=== PATIENT | female | born 1945 | race Caucasian/White ===

== ENCOUNTER → 2018-02-06 | Outpatient (CLI) | payer MEDICARE ==
[~2018-02-06] MED LIST: ASPI1TAB88 PO; CITA20TA6 PO; DICY20TA3 PO; IOHEXOL 180 MG/ML 10 ML VIAL. ONE; LIDOCAINE 2% PF 2ML VIAL. ONE; LISI-338 PO; OXYB5TAB7 PO; OXYC5TAB95 PO; ZOLP10TA4 PO; methylPREDNISolone ACETATE 40 MG/ML VIAL. ONE; methylPREDNISolone ACETATE 80 MG/ML VIAL. ONE
--- NOTE | 2018-02-07 06:17 | PAIN ---
DATE OF SERVICE: 02/06/2018 INITIAL CONSULTATION FOR PAIN CLINIC CHIEF COMPLAINT: Low back and right lower extremity pain. HISTORY OF PRESENT ILLNESS: This is a 72-year-old female who presents with history of pain about 1 year, increasing pain in the low back, radiating into the right lower extremity, posterior lateral thigh, lateral anterior thigh, medial thigh with some pain into the medial right knee as well as the lower leg on the right side. The patient reports it is burning with weakness in the right leg when she is walking, worse with standing, change positions, but essentially with walking and standing more than 10-15 minutes. The patient reports the pain has been there for many years before this, but has been worse over the past 1 year. The patient reports it is constant, throbbing, becoming more burning quality, radiating, shooting, again worse in the evening or after she had been on her feet for a while. The patient reports it is awakening her from sleep at night at least once or twice, does not affect her bowel or bladder control, but does affect her ability to walk fairly significantly and she does have a walker at home, but she is not having with her today. The patient reports she has had physical therapy in the past, nothing recently. No other treatments, counseling, exercise, chiropractic treatment or other treatments, not taking any medication for the pain except for Back and Body Kush Aspirin. This patient did have MRI scan of the lumbar spine showing old burst fracture with vertebroplasty, disk degeneration and annular bulges present at L3-L4 and L4-L5 levels with mild bilateral L4-L5 foraminal narrowing, left greater than right. The patient rates her disability rate from 0-10, 10 being the worst, is a 7 with family and home responsibilities, recreation, social activity as well as self-care and 8 with life support activities. PAST MEDICAL HISTORY: Significant for hypertension; cigarette smoking, still smokes about 1 pack a day for the past 50+ years; history of arthritis; dizziness. PREVIOUS SURGERY: Include right rotator cuff repair in 2017. Previous hysterectomy, skin cancer removals, and cataract extraction. CURRENT MEDICATIONS: Include Kush Aspirin Back and Body formula [id number], zolpidem, dicyclomine, citalopram, lisinopril, and oxybutynin. ALLERGIES: The patient has no known drug allergies. FAMILY HISTORY: Significant for no major medical problems or conditions she is aware of. SOCIAL HISTORY: The patient drinks alcohol about twice a month, smokes 1 pack of cigarettes a day and has for the past 40-50 years. She is , lives with her spouse, is currently retired, has no children, living at home, lives locally in [place], [place]. REVIEW OF SYSTEMS: The patient's review of systems is positive for those items mentioned in history of present illness. All systems reviewed and otherwise negative. It is complete, full and well documented on the patient's chart. PHYSICAL EXAMINATION: VITAL SIGNS: The patient's blood pressure 162/85, pulse 79, respirations 18, temperature 97.8 degrees Fahrenheit, height is 5 feet inches, weight is 140 pounds. GENERAL: The patient is awake, alert, oriented, appropriate, very pleasant demeanor. HEENT: Shows normocephalic, atraumatic. Extraocular movements are intact and symmetrical. Oral cavity: Mucous membranes moist and pink. Dentition is intact. NECK: Shows anterior throat supple without palpable lymphadenopathy noted. Neck shows full rotational motion of cervical spine, both laterally as well as extension and flexion without difficulty. CHEST: Shows normal on inspection. Breath sounds are clear to auscultation bilaterally. HEART: Shows S1, S2 clear. No murmurs auscultated. ABDOMEN: Soft, nontender, nondistended. No palpable organomegaly. No rebound or guarding demonstrated. BACK: Shows spine grossly in the midline, slight exaggeration of thoracic kyphosis and minor flattening of lumbar lordotic curvature. Lumbar paraspinous muscle shows symmetrical on inspection. On palpation shows some mild tenderness, but only diffusely in the lumbar distribution without radiation with palpation. The patient shows no tenderness over the sacrum or sacroiliac regions. The patient has good rotational motion both laterally greater than 10 degrees right and left as well as extension greater than 10 degrees, forward flexion 45 degrees of the lumbar spine without difficulty or pain reported. LOWER EXTREMITIES: Show deep tendon reflexes 2+ in the patellar, 1+ tendo calcaneus tendons. Motor exam is strong with 5/5 dorsiflexion, extension, quadriceps and hamstring flexion and symmetrical. Peripheral pulses are 1+ in the posterior tibial and dorsalis pedis pulses bilaterally. No peripheral edema is noted. Straight leg raising has been negative for reproduction of radicular symptoms bilaterally. Gaenslen's and Brandon's maneuvers are negative bilaterally as well. The patient is able to stand, stand on her toes without difficulty or loss of balance, is walking with a slight shuffling gait, does appear to favor the right lower extremity mildly, but again not using assistive device to ambulate. SKIN: Shows warm and dry, good turgor. No edema. No sores, rashes or bruising. IMPRESSION: This is a 72-year-old female with: 1. Approximate 1 year history of increasing pain, low back, right lower extremity in a radicular fashion. 2. MRI scan of lumbar spine as noted. 3. Arthritis. 4. Cigarette smoking. 5. Hypertension. PLAN: Options were discussed with the patient including conservative medical management, physical therapy, interventional techniques and she would like to pursue interventional techniques. We discussed a lumbar epidural steroid injection using description as well as anatomical models to describe the procedure. Risks were then discussed including, but not limited to bleeding, infection, possibility of epidural hematoma, subsequent neurological compromise, dural puncture, headaches, spinal cord and/or nerve damage, side effects of steroid medication and poor results regarding pain control. The patient understands and wished to proceed. The patient will return to the clinic in approximately 2 weeks for followup, was counseled on return appointment, activity level and side effects to be aware of. DIAGNOSIS: Lumbar radiculopathy with lumbar degenerative disk disease. PROCEDURES: Lumbar epidural steroid injection, translaminar approach, L4-L5 level using C-arm fluoroscopic guidance under sterile prep and drape using local anesthetic. MEDICATION INJECTED: A total of 120 mg Depo-Medrol plus 10 mL of preservative-free normal saline and 2 mL of Isovue for contrast. CONDITION AT DISCHARGE: Stable. The patient tolerated the procedure well and had no complications. NED PAULINO MD DR: GÓMEZ/maria d JOB#: [id number] / [id number]
== END | disposition home or self-care (01) ==
LOC: PNCL 10:28
PROVIDERS: ATTEND Anesthesiology
DX: M51.16 Intervertebral disc disorders with radiculopathy, lumbar region (principal); I10 Essential (primary) hypertension; M19.90 Unspecified osteoarthritis, unspecified site; F17.210 Nicotine dependence, cigarettes, uncomplicated; Z98.890 Other specified postprocedural states; Z90.710 Acquired absence of both cervix and uterus; Z98.49 Cataract extraction status, unspecified eye; Z79.82 Long term (current) use of aspirin; Z79.899 Other long term (current) drug therapy; Z72.89 Other problems related to lifestyle
CPT/HCPCS: 62323; J1030; J1040; J2001; Q9965

== ENCOUNTER → 2018-02-21 | Outpatient (CLI) | payer MEDICARE ==
--- NOTE | 2018-02-21 11:17 | PAIN ---
DATE OF SERVICE: 02/21/2018 DIAGNOSIS: Lumbar radiculopathy with lumbar degenerative disk disease. HISTORY OF PRESENT ILLNESS: The patient is a 72-year-old female who returns for followup status post lumbar epidural steroid injection x 1. The patient reports about 90% improvement in her low back, still pain radiating to the right posterior gluteus, posterior lateral thigh, anterior thigh and into the hip. The patient reports it is 8 on a scale of 10 at its worst, 7 on average, 6 at its least and is 7 today. The patient reports it is aching and shooting, becoming more constant and noticeable, but much better after the last injection. Her back is doing much better. She has increased her activity, greater distance walking, able to do household activities and recreational activities and is very pleased with this. The patient reports it is worse in the morning, but then has some aches later in the day. The patient reports it is not keeping her from sleep at night. She is doing well, sleeping better with sitting or lying down; again worse with walking, standing and increased activity. The patient reports no new motor or sensory deficits, no new bowel or bladder incontinence or other complaints. PHYSICAL EXAMINATION: VITAL SIGNS: The patient's blood pressure is 160/81, pulse is 75, respirations 18, temperature is 98.2 degrees Fahrenheit, height is 5 feet 5 inches, weight is 140 pounds. GENERAL: The patient is awake, alert, oriented, appropriate, very pleasant demeanor. HEENT: Head shows normocephalic, atraumatic. Extraocular movements are intact and symmetrical. Oral cavity shows mucous membranes moist and pink. Dentition is intact. NECK: Shows anterior throat supple without palpable lymphadenopathy noted. Swallow reflex is symmetrical. CHEST: Shows normal with inspection. Breath sounds clear to auscultation bilaterally. HEART: Shows S1, S2 clear. No murmurs auscultated. ABDOMEN: Soft, nontender, nondistended. No palpable organomegaly. No rebound or guarding demonstrated. BACK: Shows spine grossly in the midline. Normal appearing thoracic kyphosis and minor flattening of lumbar lordotic curvature. Lumbar paraspinous muscle shows symmetrical on inspection. With palpation, it shows some [id number]-[id number] tenderness only diffusely in the lumbar distribution without radiation in the low lumbar distribution. No tenderness over the sacrum or sacroiliac regions. The patient has good rotational motion of lumbar spine, both laterally as well as extension and flexion without difficulty. EXTREMITIES: The patient's lower extremities show deep tendon reflexes at 2+ in the patellar and 1+ tendo calcaneus tendons. Motor exam is strong with 5/5 dorsiflexion and extension; quadriceps and hamstring flexion equal. Peripheral pulses are 1+ posterior tibia. No peripheral edema is noted bilaterally. Options were discussed with the patient. The patient's old chart was reviewed as was current medication regimen updated and current review of systems updated today as well. We will proceed with a second in the series of lumbar epidural steroid injection today with fluoroscopic guidance. Risks were again discussed including, but not limited to bleeding, infection, possibility of epidural hematoma, subsequent neurological compromise, dural puncture, headaches, spinal cord and/or nerve damage, side effects of steroid medication and poor results regarding pain control. The patient understands and wished to proceed. The patient will return to clinic in approximately 2 weeks for followup, was counseled as to return appointment, activity level and side effects to be aware of. DIAGNOSIS: Lumbar radiculopathy with lumbar degenerative disk disease. PROCEDURE: Lumbar epidural steroid injection, translaminar approach at the L4-L5 level using C-arm fluoroscopic guidance under sterile prep and drape using local anesthetic. MEDICATION INJECTED: A total of 120 mg Depo-Medrol plus 10 mL of preservative-free normal saline and 2 mL of Isovue for contrast. CONDITION AT DISCHARGE: Stable. The patient tolerated the procedure well, had no complications. NED PAULINO MD DR: GÓMEZ/maria d JOB#: [id number] / [id number]
== END | disposition home or self-care (01) ==
LOC: PNCL 09:40
PROVIDERS: ATTEND Anesthesiology
DX: M51.16 Intervertebral disc disorders with radiculopathy, lumbar region (principal)
CPT/HCPCS: 62323; J1030; J1040; J2001; Q9965

== ENCOUNTER → 2018-07-24 | Outpatient (CLI) | payer MEDICARE ==
[~2018-07-24] MED LIST changes: -LIDOCAINE 2% PF 2ML VIAL. ONE; +OXYC5TAB4 PO; -OXYC5TAB95 PO
--- NOTE | 2018-07-24 17:16 | PAIN ---
DATE OF SERVICE: 07/24/2018 PROGRESS NOTE FOR PAIN CLINIC DIAGNOSES: Lumbar radiculopathy with lumbar degenerative disk disease. HISTORY OF PRESENT ILLNESS: The patient is a 73-year-old female return for followup status post lumbar epidural steroid injection x 2, last seen 02/21/2018. The patient reports doing very well, 100% improvement until about the last 1-2 months. The patient reports pain began to return in 06/2018. Initially, she was walking with greater ease and comfort, traveling with ease, doing household activities, especially walking without pain, enjoying herself. The patient reports she is sleeping well at night, does not awaken her from sleep. The patient reports no new motor or sensory deficits or other complaints. She has pain in the low back into the right lower extremity, mostly in the posterior lateral thigh, lateral anterior thigh, medial thigh, medial lower leg with standing and walking for more than about 15-20 minutes. The patient reports the pain is a 9 on a scale 10 at its worst, 8 on average, 6 at least and is 6 today. The patient reports shooting, becoming more constant, more noticeable especially with traveling or sitting for prolonged periods as well as standing. She reports no other changes. PHYSICAL EXAMINATION: VITAL SIGNS: The patient blood pressure is 157/81, pulse 77, respirations 18, temperature is 98.4 degrees Fahrenheit, weight is 143 pounds. GENERAL: The patient is awake, alert, oriented, appropriate, very pleasant demeanor. HEENT: Head shows normocephalic and atraumatic. Extraocular movements are intact and symmetrical. Oral cavity: Mucous membranes are moist and pink. Dentition is intact. NECK: Shows anterior throat supple without palpable lymphadenopathy noted. Swallow reflex is symmetrical. CHEST: Shows normal on inspection. Breath sounds clear to auscultation bilaterally. HEART: Shows S1 and S2 clear. No murmurs auscultated. ABDOMEN: Soft, nontender and nondistended. No palpable organomegaly is noted. No rebound or guarding demonstrated. BACK: She has been the midline. Normal appearing thoracic kyphosis and lumbar lordotic curvature. Lumbar paraspinous muscle shows symmetrical on inspection, with palpation shows some moderate tenderness only in the low lumbar distribution bilaterally, but only diffusely without radiation, without trigger points. The patient shows good rotational motion of the lumbar spine, both laterally greater than 10 degrees right and left as well as extension than 10 degrees, forward flexion 45 degrees without significant pain reported. EXTREMITIES: The patient's lower extremities showed deep tendon reflexes at 2+ in the patellar and 1+ tendo calcaneus tendons. Motor exam is strong with 5/5 dorsiflexion, extension, quadriceps and hamstring flexion and symmetrical. Peripheral pulses are 1+ posterior tibial. No peripheral edema is noted bilaterally. PLAN: Options were discussed with the patient. The patient's old chart was reviewed as her current medication regimen updated. Current review of systems is updated today as well. We will proceed with a lumbar epidural steroid injection today as a ____ in the series with fluoroscopic guidance. Risks were again discussed including, but not limited to bleeding, infection, possibility of epidural hematoma, subsequent neurological compromise, dural puncture, headaches, spinal cord and/or nerve damage, side effects of steroid medication and poor results regarding pain control. The patient understands and wished to proceed. The patient to return to clinic in approximately 2 weeks for followup, was counseled on return appointment, activity level and side effects to be aware of. DIAGNOSES: Lumbar radiculopathy with lumbar degenerative disk disease. PROCEDURE: Lumbar epidural steroid injection, translaminar approach at L4-L5 level using C-arm fluoroscopic guidance under sterile prep and drape using local anesthetic. MEDICATION INJECTED: A total of 120 mg Depo-Medrol, plus 10 mL preservative-free normal saline and 2 mL of Isovue for contrast. CONDITION AT DISCHARGE: Stable. The patient tolerated procedure well, had no complications. NED PAULINO MD DR: GÓMEZ/maria d JOB#: [id number] / [id number]
== END | disposition home or self-care (01) ==
LOC: PNCL 10:14
PROVIDERS: ATTEND Anesthesiology
DX: M51.16 Intervertebral disc disorders with radiculopathy, lumbar region (principal)
CPT/HCPCS: 62323; J1030; J1040; Q9965

== ENCOUNTER → 2019-01-03 | Outpatient (CLI) | payer MEDICARE ==
--- NOTE | 2019-01-03 20:52 | PAIN ---
DATE OF SERVICE: 01/03/2019 PROGRESS NOTE FOR PAIN CLINIC DIAGNOSIS: Lumbar radiculopathy with lumbar degenerative disk disease. HISTORY OF PRESENT ILLNESS: The patient is a 73-year-old female, who returns for followup status post lumbar epidural steroid injections, last seen in 07/24/2018. The patient did very well with about 50% improvement for the first 3 months. The patient reports the pain is returning now in the low back and right lower extremity, posterior hip, posterolateral thigh, lateral anterior thigh and medial thigh and lower leg. The patient reports it is 8 on a scale of 10 at its worst, 8 on an average, 7 at its least and is a 7 today. The patient reports no new motor or sensory deficits, no new bowel or bladder incontinence. Initially, she was increasing distance walking, doing better with household activities, sleeping well at night; reports it does awaken her from sleep occasionally over the last few weeks; otherwise, has been doing very well. The patient reports no new motor or sensory deficits, no new bowel or bladder incontinence. Reports the pain is aching, shooting and stabbing in quality and becoming more constant with time. PHYSICAL EXAMINATION: VITAL SIGNS: Today, the patient's blood pressure is 148/83, pulse 88, respirations 16, temperature 98.3 degrees Fahrenheit, weight is 141 pounds. GENERAL: The patient is awake, alert, oriented, appropriate, very pleasant demeanor. HEENT: Head shows normocephalic, atraumatic. Extraocular movements are intact and symmetrical. Oral cavity: Mucous membranes moist and pink; dentition is intact. NECK: Shows anterior throat supple without palpable lymphadenopathy noted. Swallow reflex symmetrical. CHEST: Shows normal on inspection. Breath sounds are clear to auscultation bilaterally. HEART: Shows S1, S2 clear. No murmurs auscultated. ABDOMEN: Soft, nontender and nondistended. No palpable organomegaly is noted. No rebound or guarding demonstrated. BACK: Shows spine grossly in the midline. Normal-appearing thoracic kyphosis and lumbar lordotic curvature. Lumbar paraspinous musculature shows symmetrical on inspection with palpation; there is some moderate tenderness diffusely bilaterally going diffusely without radiation. EXTREMITIES: The patient's lower extremities show deep tendon reflexes are +2 in the patellar and 1+ in the tendo-calcaneus tendons. Motor exam is strong with 5/5 dorsiflexion, extension and equal. Peripheral pulses are 1+ posterior tibial. No peripheral edema is noted. Options were discussed with the patient. The patient's old chart was reviewed as her current medication regimen updated. Current review of systems updated today as well. We will proceed with a lumbar epidural steroid injection, the first in this series, with fluoroscopic guidance. Risks were again discussed including, but not limited to bleeding, infection, possibility of epidural hematoma, subsequent neurologic compromise, dural puncture, headaches, spinal cord and/or nerve damage, side effects of steroid medication and poor results regarding pain control. The patient understands and wished to proceed. The patient will return to the clinic in approximately 2 weeks for followup. She was counseled on return appointment, activity level and side effects to be aware of. DIAGNOSIS: Lumbar radiculopathy with lumbar degenerative disk disease. PROCEDURE: Lumbar epidural steroid injection, translaminar approach at L4-L5 level, using C-arm fluoroscopic guidance under sterile prep and drape using local anesthetic. MEDICATIONS INJECTED: A total of 120 mg of Depo-Medrol plus 10 mL of preservative-free normal saline and 2 mL of Isovue for contrast. CONDITION AT DISCHARGE: Stable. The patient tolerated the procedure well, had no complications. NED PAULINO MD DR: GÓMEZ/nts JOB#: [id number] / [id number]
== END ==
LOC: PNCL 09:25
PROVIDERS: ATTEND Anesthesiology
DX: M51.16 Intervertebral disc disorders with radiculopathy, lumbar region (principal)
CPT/HCPCS: 62323; J1030; J1040; Q9965

== ENCOUNTER → 2019-01-17 | Outpatient (CLI) | payer MEDICARE ==
[~2019-01-17] MED LIST changes: -IOHEXOL 180 MG/ML 10 ML VIAL. ONE
--- NOTE | 2019-01-18 03:00 | PAIN ---
DATE OF SERVICE: 01/17/2019 INITIAL CONSULTATION FOR PAIN CLINIC DIAGNOSES: Lumbar radiculopathy with lumbar degenerative disk disease. HISTORY OF PRESENT ILLNESS: The patient is a 73-year-old female who returns for followup status post lumbar epidural steroid injection x 1. The patient reports about 30% improvement with the first injection. After several days, the pain began to reside, but it is now still in the low back and right lower extremity. The patient reports in the right lateral thigh, anterior medial thigh and the low back, the patient reports it is an 8 on a scale of 10 on average, 8 at its worst, is 7 on its least and is an 8 today. The patient reports it is sharp, shooting, becoming more constant with weightbearing, standing and walking. The patient reports no new motor or sensory deficits, no new bowel or bladder incontinence. Reports she is sleeping well at night, does not awaken her when she is lying down or sitting, mostly with just on her feet and walking. PHYSICAL EXAMINATION: VITAL SIGNS: The patient's blood pressure 155/81, pulse 74, respirations 20, temperature 98.2 degrees Fahrenheit, weight is 140 pounds. GENERAL: The patient is awake, alert, oriented, appropriate, very pleasant demeanor. HEENT: Shows normocephalic, atraumatic. Extraocular movements are intact and symmetrical. Oral cavity: Mucous membranes moist and pink. Dentition is intact. NECK: Shows anterior throat supple without palpable lymphadenopathy noted. Swallow reflex symmetrical. CHEST: Shows normal on inspection. Breath sounds clear to auscultation bilaterally. HEART: Shows S1, S2 clear. No murmurs auscultated. ABDOMEN: Soft, nontender, nondistended. BACK: The patient's back shows spine grossly in the midline. Slight exaggeration of thoracic kyphosis and minor flattening of lumbar lordotic curvature. Lumbar paraspinous muscle shows symmetrical on inspection, on palpation shows some moderate tenderness diffusely bilaterally going diffusely without radiation. EXTREMITIES: The patient's lower extremities show deep tendon reflexes 2+ in the patellar, 1+tendo-calcaneus tendons. Motor exam is strong with 5/5 dorsiflexion, extension, quadriceps and hamstring flexion and symmetrical. Peripheral pulses are 1+, posterior tibia. No peripheral edema is noted bilaterally. Options were discussed with the patient. The patient's old chart was reviewed. Her current medication regimen updated. Current review of systems updated today as well. We will proceed with a lumbar epidural steroid injection second in the series with fluoroscopic guidance. Risks were again discussed including, but not limited to bleeding, infection, possibility of epidural hematoma, subsequent neurological compromise, dural puncture, headaches, spinal cord and/or nerve damage, side effects of steroid medication and poor results regarding pain control. The patient understands and wished to proceed. The patient will return to clinic in approximately 2 weeks for followup. She was counseled on return appointment, activity level and side effects to be aware of. DIAGNOSES: Lumbar radiculopathy with lumbar degenerative disk disease. PROCEDURE: Lumbar epidural steroid injection, translaminar approach L4-L5 level using C-arm fluoroscopic guidance under sterile prep and drape using local anesthetic. MEDICATION INJECTED: A total of 120 mg of Depo-Medrol plus 10 mL of preservative-free normal saline and 2 mL of contrast. CONDITION AT DISCHARGE: Stable. The patient tolerated the procedure well, had no complications. NED PAULINO MD DR: GÓMEZ/maria d JOB#: [id number] / [id number]
== END ==
LOC: PNCL 13:49
PROVIDERS: ATTEND Anesthesiology
DX: M51.16 Intervertebral disc disorders with radiculopathy, lumbar region (principal)
CPT/HCPCS: 62323; J1030; J1040

== ENCOUNTER → 2019-02-07 | Outpatient (CLI) | payer MEDICARE ==
[~2019-02-07] MED LIST changes: +IOHEXOL 180 MG/ML 10 ML VIAL. ONE
--- NOTE | 2019-02-08 07:01 | PAIN ---
DATE OF SERVICE: 02/07/2019 PROGRESS NOTE FOR PAIN CLINIC DIAGNOSES: Lumbar radiculopathy with lumbar degenerative disk disease. HISTORY OF PRESENT ILLNESS: The patient is a 73-year-old female, who returns for followup status post lumbar epidural steroid injection x2. The patient reports only about 50% improvement after her last injection in the right leg pain and low back pain. The patient reports pain is a 9 on a scale of 10 at all times at worst and average and at its least is a 9 today. The patient reports it is stabbing, aching, and radiating in her low back, the right leg, posterior gluteus, posterolateral thigh, lateral anterior thigh, medial thigh, on the right side only. The patient reports it is worse with walking, standing, and changing positions. The patient reports that for the first week, she did quite well, but then the pain returned. The patient reports no new motor or sensory deficits, sleeping well at night, better with sitting or lying down, but worse with standing, walking, or weightbearing. PHYSICAL EXAMINATION: VITAL SIGNS: The patient's blood pressure 147/73, pulse 78, respirations 16, temperature 98.2 degree Fahrenheit, weight is 140 pounds. GENERAL: The patient is awake, alert, oriented, appropriate, very pleasant demeanor. The patient is accompanied by her . HEENT: Normocephalic, atraumatic. Extraocular movements are intact and symmetrical. Oral cavity: Mucous membranes moist and pink. Dentition is intact. NECK: Shows anterior throat supple without palpable lymphadenopathy noted. Swallow reflex symmetrical. CHEST: Shows normal on inspection. Breath sounds clear to auscultation bilaterally. HEART: Shows S1, S2 clear. No murmurs auscultated. ABDOMEN: Soft, nontender, nondistended. No palpable organomegaly is noted. No rebound or guarding demonstrated. BACK: Shows spine grossly in the midline, slight exaggeration of thoracic kyphosis and minor flattening of lumbar lordotic curvature. Lumbar paraspinous muscle shows symmetrical on inspection. With palpation, there is some moderate tenderness diffusely bilaterally but only diffusely without radiation. EXTREMITIES: The patient's lower extremities show deep tendon reflexes 2+ and patellar 1+. Tendo-calcaneus tendons are equal. Motor exam is strong with 5/5 dorsiflexion and extension. Peripheral pulses are 1+, posterior tibial. No peripheral edema is noted bilaterally. IMPRESSION AND PLAN: Options were discussed with the patient. The patient's old chart was reviewed. Her current medication regimen was updated. Current review of systems was updated today as well. We will proceed with the third in the series of lumbar epidural steroid injection today with fluoroscopic guidance. Risks were again discussed including but not limited to bleeding, infection, possibility of epidural hematoma, subsequent neurologic compromise, dural puncture, headaches, spinal cord and/or nerve damage, side effects of steroid medication, and poor results regarding pain control. The patient understands and wishes to proceed. The patient will return to clinic in approximately 2 weeks for followup. She was counseled on return appointment, activity level, and side effects to be aware of. PROCEDURES: Lumbar epidural steroid injection, translaminar approach, at L4-L5 level using C-arm fluoroscopic guidance under sterile prep and drape using local anesthetic. MEDICATION INJECTED: The patient received a total of 120 mg Depo-Medrol plus 10 mL of preservative-free normal saline and 2 mL of contrast. CONDITION AT DISCHARGE: Stable. The patient tolerated the procedure well and had no complications. NED PAULINO MD DR: GÓMEZ/maria d JOB#: [id number] / [id number]
== END ==
LOC: PNCL 09:51
PROVIDERS: ATTEND Anesthesiology
DX: M51.16 Intervertebral disc disorders with radiculopathy, lumbar region (principal)
CPT/HCPCS: 62323; J1030; J1040; Q9965

== ENCOUNTER → 2019-06-24 | Outpatient (CLI) | payer MEDICARE ==
[~2019-06-24] MED LIST changes: +ACET-704 PO; -IOHEXOL 180 MG/ML 10 ML VIAL. ONE; +OXYB5TAB10 PO; -OXYB5TAB7 PO; +[UNRECOGNIZED DRUG - OTHER] PO; -methylPREDNISolone ACETATE 40 MG/ML VIAL. ONE; -methylPREDNISolone ACETATE 80 MG/ML VIAL. ONE
[2019-06-24 16:16] LABS: BASO % 1 % (0-3); EOS % 0 % (0-3); HEMATOCRIT 26.9 % (36.0-47.0); HEMOGLOBIN 8.6 g/dL (12.0-15.5); LYMPH # 1.4 x10^3/uL (1.0-4.8); LYMPH % 29 % (24-48); MEAN CORPUSCULAR HEMOGLOBIN 25 pg (25-35); MEAN CORPUSCULAR HGB CONC 32 g/dL (31-37); MEAN CORPUSCULAR VOLUME 76 fL (79-100); MONO # 0.3 x10^3/uL (0.0-1.1); MONO % 7 % (0-9); NEUT # 3.2 x10^3/uL (1.8-7.7); NEUT % 64 % (31-73); PLATELET COUNT 422 x10^3/uL (140-400); RED BLOOD COUNT 3.53 x10^6/uL (3.50-5.40); RED CELL DISTRIBUTION WIDTH 16.8 % (11.5-14.5)
--- NOTE | 2019-06-24 16:19 | EKG ---
[address] [place] [address] Test Date: 2019-06-24 Test Time: 15:55:28 Pat Name: CHRIS WISEMAN Department: Room: Gender: F [employer] Supervisor: : 1945 Requested By: LUISA GREER Order Number: [id number] Reading MD: Alfredito Atkins Measurements Intervals [place] Rate: 64 P: 39 NE: 188 QRS: 54 QRSD: 78 T: 59 QT: 380 QTc: 396 Interpretive Statements SINUS RHYTHM LEFT ATRIAL ABNORMALITY Electronically Signed On 06-25-2019 16:22:22 [employer] by Alfredito Atkins
[2019-06-24 16:45] LABS: ALBUMIN 4.2 g/dL (3.4-5.0); ALBUMIN/GLOBULIN RATIO 1.2 (1.0-1.7); CREATININE 0.9 mg/dL (0.6-1.0); POTASSIUM 3.8 mmol/L (3.5-5.1); TOTAL BILIRUBIN 0.2 mg/dL (0.2-1.0); TOTAL PROTEIN 7.6 g/dL (6.4-8.2)
== END | disposition home or self-care (01) ==
LOC: SURGPAT 13:33
PROVIDERS: ATTEND Neurological Surgery
DX: Z01.818 Encounter for other preprocedural examination (principal); M47.26 Other spondylosis with radiculopathy, lumbar region; M48.062 Spinal stenosis, lumbar region with neurogenic claudication
CPT/HCPCS: 36415; 80053; 85025; 87641; 93005

== ENCOUNTER → 2019-11-25 | Outpatient (CLI) | payer MEDICARE ==
[~2019-11-25] MED LIST changes: +ACET325T9 PO; +FERR89TA PO; +OXYC1TAB15 PO
[2019-11-25 14:37] LABS: BASO # 0.1 x10^3/uL (0.0-0.2); BASO % 1 % (0-3); EOS % 1 % (0-3); HEMOGLOBIN 11.1 g/dL (12.0-15.5); LYMPH # 1.5 x10^3/uL (1.0-4.8); LYMPH % 30 % (24-48); MEAN CORPUSCULAR HEMOGLOBIN 30 pg (25-35); MEAN CORPUSCULAR HGB CONC 35 g/dL (31-37); MEAN CORPUSCULAR VOLUME 87 fL (79-100); MONO # 0.4 x10^3/uL (0.0-1.1); MONO % 9 % (0-9); NEUT # 3.1 x10^3/uL (1.8-7.7); NEUT % 60 % (31-73); PLATELET COUNT 355 x10^3/uL (140-400); RED BLOOD COUNT 3.66 x10^6/uL (3.50-5.40); RED CELL DISTRIBUTION WIDTH 19.3 % (11.5-14.5); WHITE BLOOD COUNT 5.2 x10^3/uL (4.0-11.0)
[2019-11-25 14:46] LABS: PROTHROMBIN TIME PATIENT 12.6 SEC (11.7-14.0)
[2019-11-25 14:49] LABS: CALCIUM 8.7 mg/dL (8.5-10.1); CREATININE 0.9 mg/dL (0.6-1.0); POTASSIUM 3.9 mmol/L (3.5-5.1)
--- NOTE | 2019-11-25 14:49 | NUR ---
PT HAS RASH ON UPPER LEFT ARM. STATES JUST STARTED. IT IS PLURITIC IN NATURE, SHE IS TO SEE HER PCP SOON AND INSTRUCTED TO REPORT THE RASH. SHE WILL TAKE SOME BENADRYL AND TRY SOME HYDROCORTISONE CREAM, AND WE WILL REASSES WHEN SHE COMES FOR COVID TESTING 12/05/19.
[2019-11-25 14:52] LABS: C-REACTIVE PROTEIN 2.4 mg/L (0-3.3)
--- NOTE | 2019-11-25 15:30 | RAD ---
EXAM: CHEST PA LATERAL INDICATION: Reason: PRE OP LT SHOULDER SURGERY 12/09/19. HX HTN, PT IS A SMOKER / Spl. Instructions: / History: . TECHNIQUE: PA and lateral views COMPARISON: Left shoulder x-rays of 11/14/2019 FINDINGS: The heart size is normal. The great vessels appear unremarkable. There is no hilar or mediastinal mass. Lungs show hyperlucency and coarse interstitial markings consistent with chronic underlying obstructive lung disease. There is no pleural effusion or pneumothorax. There is some evidence of partial interval healing but marked residual deformity in the proximal left humeral head and neck fracture evident on prior x-ray. IMPRESSION: Evidence of chronic lung disease with no acute cardiopulmonary process shown by x-ray. Electronically signed by: Homar Tyler MD (11/25/2019 3:28 PM) [id number]
[2019-11-26 01:08] LABS: HEMOGLOBIN A1C 5.2 % (4.8-5.6)
== END | disposition home or self-care (01) ==
LOC: SURGPAT 13:40
PROVIDERS: ATTEND Orthopaedic Surgery Sports Medicine
DX: Z01.818 Encounter for other preprocedural examination (principal); S42.292A Other displaced fracture of upper end of left humerus, initial encounter for closed fracture; I10 Essential (primary) hypertension; X58.XXXA Exposure to other specified factors, initial encounter; Y93.89 Activity, other specified; Y92.89 Other specified places as the place of occurrence of the external cause; Y99.8 Other external cause status
CPT/HCPCS: 36415; 71046; 80048; 82040; 82306; 83036; 85025; 85610; 85730; 86140; 87641

== ENCOUNTER 2019-12-02 10:15 | Inpatient (IN) | payer MEDICARE ==
[~2019-12-02] VITALS: Ht 165.1 cm; Wt 59.5 kg
[2019-12-09] MEDS ORDERED: TRANEXAMIC ACID 1,000 MG in IV NS 50ML -- 1ST BAG INJ ONE (06:00)
[2019-12-09] MEDS ORDERED: TV=100ml MORPHINE 5 MG, KETOROLAC 30 MG, ROPIVacaine 0.5% PF 60 ML, EPINEPH... INT ART ONE (06:00)
[2019-12-09] MEDS ORDERED: ceFAZolin SODIUM IV Push 1 GM VIAL. IVP PRN (06:00)
[2019-12-09] MEDS ORDERED: ACETAMINOPHEN 500 MG TABLET PO PRN (06:00)
[2019-12-09] MEDS ORDERED: fentaNYL PF VIAL 100 MCG/2 ML VIAL IV PRN (07:00)
[2019-12-09] MEDS ORDERED: HYDROmorphone 2 MG/ML VIAL IV PRN (07:00)
[2019-12-09] MEDS ORDERED: PROCHLORPERAZINE 10 MG/2 ML VIAL. IV PRN (07:00)
[2019-12-09] MEDS ORDERED: LIDOCAINE 1% PF 2 ML VIAL. ID PRN (07:00)
[2019-12-09] MEDS ORDERED: ROPIVacaine 0.5% PF 20 ML VIAL. ONE (07:04)
[2019-12-09] MEDS ORDERED: DEXAMETHASONE SOD PHOS 20 MG/5 ML VIAL. ONE (07:04)
[2019-12-09] MEDS ORDERED: SUCCINYLCHOLINE 200 MG/10 ML VIAL. ONE (07:05)
[2019-12-09] MEDS ORDERED: fentaNYL PF VIAL 100 MCG/2 ML VIAL ONE ×2 (07:05→09:09)
[2019-12-09] MEDS ORDERED: ROCURONIUM 50 MG/5 ML VIAL. ONE (07:05)
[2019-12-09] MEDS ORDERED: LIDOCAINE 2% PF 5 ML VIAL. ONE (07:05)
[2019-12-09] MEDS ORDERED: PROPOFOL 10 MG/ML (20ML) VIAL. IV ONE (07:05)
[2019-12-09] MEDS: IV RINGERS,LACTATED 1000ML 1,000 ML IV SCH ×2 (07:22→12:23)
[2019-12-09] MEDS ORDERED: MIDAZOLAM HCL/PF 2 MG/2 ML VIAL. ONE (07:25)
[2019-12-09] MEDS ORDERED: SCOPOLAMINE 1.5MG PATCH. TD ONE (07:30)
[2019-12-09] MEDS ORDERED: IV DEXTROSE 5 %-0.45 % NACL 1,000 ML IV SCH (07:44)
[2019-12-09] MEDS ORDERED: IV NORMAL SALINE 1000ML BAG 1,000 ML IV SCH (07:44)
[2019-12-09] MEDS ORDERED: 0.9 % SODIUM CHLORIDE 10 ML DISP.SYRIN. IV PRN (07:45)
[2019-12-09] MEDS ORDERED: oxyCODONE/APAP 7.5/325 1 TAB TABLET PO PRN (07:45)
[2019-12-09] MEDS ORDERED: NALOXONE 0.4 MG/ML VIAL. IV PRN (07:45)
[2019-12-09] MEDS ORDERED: HYDROcodone/APAP 7.5/325MG 1 TAB TABLET PO PRN (07:45)
[2019-12-09] MEDS ORDERED: traMADol 50 MG TABLET PO PRN ×2 (07:45)
[2019-12-09] MEDS ORDERED: CALCIUM CARBONATE 500 MG TAB.CHEW PO PRN (07:45)
[2019-12-09] MEDS ORDERED: ACETAMINOPHEN 325 MG TABLET. PO PRN (07:45)
[2019-12-09] MEDS ORDERED: METOCLOPRAMIDE HCL 10 MG/2 ML VIAL. IV PRN (07:45)
[2019-12-09] MEDS ORDERED: ZOLPIDEM 5 MG TABLET. PO PRN ×2 (07:45→08:15)
[2019-12-09] MEDS ORDERED: DEXTROSE 50% 25 GM / 50ML DISP.SYRIN. IV PRN (07:45)
[2019-12-09 07:46] LABS: PROTHROMBIN TIME PATIENT 12.8 SEC (11.7-14.0)
[2019-12-09] MEDS ORDERED: FAMOTIDINE 20 MG/2 ML VIAL ONE (07:59)
[2019-12-09] MEDS ORDERED: DEXAMETHASONE SOD PHOS 4 MG/ML VIAL ONE (07:59)
[2019-12-09] MEDS ORDERED: DESFLURANE 61 TO 120 MINUTES IH ONE (08:00)
[2019-12-09] MEDS ORDERED: TRANEXAMIC ACID 1,000 MG in IV NS 50ML -- 2ND BAG INJ ONE (08:00)
[2019-12-09] MEDS ORDERED: ONDANSETRON PF 4 MG/2 ML VIAL. ONE (08:00)
[2019-12-09] MEDS ORDERED: ePHEDrine PF IN SALINE 50 MG/10 ML SYRINGE. IV ONE (08:40)
[2019-12-09] MEDS ORDERED: FERROUS FUMARATE 89 MG PO SCH (09:00)
[2019-12-09] MEDS ORDERED: GLYCOPYRROLATE 1 MG/5 ML VIAL. ONE (10:00)
[2019-12-09] MEDS ORDERED: NEOSTIGMINE METHYLSULFATE 5 MG/5 ML SYRINGE. ONE (10:00)
[2019-12-09] MEDS ORDERED: PHENYLEPHRINE in 0.9% NACL PF 1 MG/10 ML SYRINGE. IV ONE (10:19)
[2019-12-09] MEDS: fentaNYL PF VIAL 100 MCG/2 ML VIAL IV PRN ×3 (11:00→12:11)
--- NOTE | 2019-12-09 11:06 | PDOC4 ---
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 Clinical and radiographic evidence were consistent with the above preoperative diagnosis and because of her pain and inability to use her shoulder for simple ADLs, we discussed proceeding with the above surgery and she elected to proceed. Description of procedure: Patient was greeted in the preoperative area by myself where the correct extremity was verified and marked. She underwent an attempted regional nerve block, the anesthesiologist said that it did not work well though. She was then brought back to the operating room, antibiotics started as she was brought back. Once in the operating room, she was transferred gently supine to the operating room table and had successful induction of a general anesthetic. After this, we set her up in a beachchair position maintaining her C-spine in a neutral position and had a large pad under her legs. She was secured to the bed. Range of motion was 90 degrees of forward elevation and 10 of external rotation. We then proceeded to prep and drape left upper extremity and shoulder girdle in our usual sterile fashion including Ioban at the periphery. After this, I palpated marked surface anatomy and twila a line for my standard deltopectoral skin incision, I incised skin with a scalpel and cauterize bleeders as they were encountered. I dissected subcutaneous tissue until identified the cephalic vein using Metzenbaums. I then bluntly developed the deltopectoral interval taking the vein laterally. After this, I bluntly dissected in the subacromial space and subdeltoid space as well. I then identified her bicipital sheath and open this up, I then performed a tenodesis of her biceps tendon to the upper border of the pectoralis major tendon. I then transected the biceps tendon and open the sheath and to the rotator interval and glenohumeral joint. I then took down subscapularis with electrocautery and a Ny elevator, using traction stitches as I proceeded. After this, I inspected the malunion I then used an osteotome and saw to mobilize the malunited tuberosities. I used a rongeur to remove the head fragments. After accomplishing this, I used a scalpel circumferentially around the glenoid to perform my release. I then used the guide to place my guidepin for my reamer. I then reamed on hand power and used a rongeur to remove some more of the labrum. I placed my Fukuda retractor and Bankart retractors. After this, I used a freer around the glenoid to help and tried accomplish a complete release and to palpate for the column of bone inferiorly. After reaming down to a punctate bleeding bony bed, I drilled for my baseplate stem and impacted my baseplate in position. Given her small anatomy I placed 2 locking screws. After this, I seated my glenosphere into position and secured it. I then removed my retractors and used Darrach retractors for the shaft. I gained entry to the canal and broached to the above size. I then impacted my stem into position, I felt I had solid purchase there. I then added my tray and trial polyethylene, I was unable to reduce the shoulder. I removed the trial components and used a saw to saw off a couple more millimeters, I had to repeat this maneuver twice before I was able to get it reduced. She had excellent range of motion and stability with the trial components in place. I then redislocated the arm and impacted my stem into position, I again felt that had good fixation with the proximal porous coating. I then secured my baseplate and polyethylene insert. I was able to reduce the shoulder. Prior to this, I had thoroughly irrigated everything out. Also prior to impacting the stem into position, I placed #2 Ethibond through drill tunnels and around the stem. With the shoulder reduced, I again irrigated everything out. I then used #2 Ethibond for my soft tissue repair mobilizing the greater as well. I incorporated the sutures placed around the stem into my subscapularis repair as well. After this, I irrigated everything out again and closed the deltopectoral interval with running 0 Vicryl. Inverted interrupted 2-0 Vicryl was used for subcutaneous tissue and running 4-0 Monocryl in a buried subcuticular fashion was used for skin. The shoulder and arm were cleansed and dried and an incisional wound VAC was then applied. She was placed into an abduction pillow sling after the drapes were taken down. She was then laid supine and transferred on the spine to the recovery room cart, she was taken to the PACU in stable and extubated condition. Prior to wound closure, all counts correct x2. No complications. Postoperative plan is to admit her for observation and pain control. She will be nonweightbearing left upper extremity. COLTEN CARTY II, MD Dec 09, 2019 11:06
[2019-12-09] MEDS: MORPHINE SULFATE 2 MG/ML VIAL. IV PRN ×4 (11:36→19:05)
--- NOTE | 2019-12-09 12:12 | RAD ---
SHOULDER 2+V LEFT History: Reason: POST OP / Spl. Instructions: / History: Technique: 2 views left shoulder. Comparison: November 14, 2019 Findings: Interval reverse total shoulder arthroplasty. Left humeral head fracture fragments noted. Heterotopic ossification along the lateral proximal humerus. Normal alignment. Expected postoperative changes subcutaneous and intra-articular gas. Pulmonary emphysematous changes. Impression: 1. Interval left reverse total shoulder arthroplasty. No immediate hardware complications. Electronically signed by: Tim Evans DO (12/09/2019 12:09 PM) [id number]
[2019-12-09 12:34] VITALS: BP 129/75
[2019-12-09] MEDS: DICYCLOMINE HCL 10 MG CAPSULE PO SCH ×4 (13:00→20:39)
[2019-12-09] MEDS: OXYBUTYNIN CHLORIDE 5 MG TABLET PO SCH ×3 (14:00→20:39)
[2019-12-09 15:00] VITALS: BP 120/55
[2019-12-09] MEDS: SENNOSIDES/DOCUSATE 8.6/50MG TABLET. PO SCH (15:06)
[2019-12-09] MEDS: LISINOPRIL 5 MG TABLET. PO SCH (15:06)
[2019-12-09] MEDS: CITALOPRAM 20 MG TABLET. PO SCH ×2 (15:06→20:39)
[2019-12-09] MEDS: MULTIVITAMIN with MINERAL TABLET. PO SCH (15:06)
[2019-12-09] MEDS: HYDROcodone/APAP 10/325 1 TAB TABLET PO PRN ×2 (15:06→20:48)
[2019-12-09] MEDS: FERROUS SULFATE 325 MG TABLET. PO SCH ×2 (15:06→17:10)
--- NOTE | 2019-12-09 15:12 | NUR ---
SS following for discharge planning. SS reviewed pt chart and discussed with pt RN. Pt is from home with spouse and is currently requiring oxygen. Pt had left shoulder surgery today. Pt on IV Ancef. SS will continue to follow for discharge planning.
[2019-12-09] MEDS: ceFAZolin SODIUM IV Push 1 GM VIAL. IVP SCH ×2 (16:03→20:39)
[2019-12-09] MEDS: PROCHLORPERAZINE 5 MG TABLET. PO PRN ×2 (16:16→20:51)
--- NOTE | 2019-12-09 17:00 | NUR ---
Dr Tong paged regard to urinary retention of more than 1000 ml per bladder scan. Order received to do straight cath and was done under aseptic measure. 1200 ml of urin drained.
[2019-12-09 19:35] VITALS: BP 147/55
[2019-12-09] MEDS: CELECOXIB 100 MG CAPSULE. PO SCH (20:39)
[2019-12-09 23:05] VITALS: BP 129/61
[2019-12-10] MEDS: ceFAZolin SODIUM IV Push 1 GM VIAL. IVP SCH (01:30)
[2019-12-10] MEDS: MORPHINE SULFATE 2 MG/ML VIAL. IV PRN ×2 (01:39→07:07)
[2019-12-10 03:05] VITALS: BP 147/67
[2019-12-10] MEDS: HYDROcodone/APAP 10/325 1 TAB TABLET PO PRN ×2 (03:49→07:06)
[2019-12-10] MEDS: PROCHLORPERAZINE 5 MG TABLET. PO PRN (03:53)
--- NOTE | 2019-12-10 04:25 | NUR ---
Pt has not been able to urinate. Bladder scan revealed approximately 450cc. A 16 fr steward catheter with 10 cc balloon placed in sterile fashion. Pt remains painful in left shoulder area and also medicated for nausea at this time. Will continue to monitor.
[2019-12-10] MEDS ORDERED: MAGNESIUM HYDROXIDE 2,400 MG/30 ML ORAL.SUSP. PO PRN (06:00)
[2019-12-10 06:07] LABS: HEMATOCRIT 28.3 % (36.0-47.0); HEMOGLOBIN 9.7 g/dL (12.0-15.5)
[2019-12-10 07:00] VITALS: BP 133/61
--- NOTE | 2019-12-10 08:48 | PDOC ---
ORTHO PROGRESS NOTES Subjective She tells me that her shoulder is quite sore today. She had a Rivera catheter placed last night for urinary retention Vitals Vital Signs Date Time Temp Pulse Resp B/P (MAP) Pulse Ox O2 Delivery O2 Flow Rate FiO2 12/10/19 07:37 94 Room Air 1.0 12/10/19 07:00 98.2 95 18 133/61 (85) 98.2 Labs Laboratory Tests Test 12/09/19 07:00 12/10/19 04:30 Prothrombin Time 12.8 SEC (11.7-14.0) Prothromb Time International Ratio 1.0 (0.8-1.1) Hemoglobin 9.7 g/dL (12.0-15.5) Hematocrit 28.3 % (36.0-47.0) Mean Corpuscular Hemoglobin Concent 34 g/dL (31-37) Laboratory Tests Test 12/10/19 04:30 Hemoglobin 9.7 g/dL (12.0-15.5) Hematocrit 28.3 % (36.0-47.0) Mean Corpuscular Hemoglobin Concent 34 g/dL (31-37) Notes X-rays were reviewed She is awake and alert and sitting in bed. Left upper extremity is in a sling. Normal motor and sensation are present. Incisional wound VAC is intact Assessment and Plan We will do a voiding trial today, possibly home later today. We will adjust her pain regimen RONI CARTY II, MD Dec 10, 2019 08:48
[2019-12-10] MEDS: CELECOXIB 100 MG CAPSULE. PO SCH (09:39)
[2019-12-10] MEDS: DICYCLOMINE HCL 10 MG CAPSULE PO SCH ×2 (09:40→14:57)
[2019-12-10] MEDS: FERROUS SULFATE 325 MG TABLET. PO SCH (09:40)
[2019-12-10] MEDS: CITALOPRAM 20 MG TABLET. PO SCH (09:40)
[2019-12-10] MEDS: OXYBUTYNIN CHLORIDE 5 MG TABLET PO SCH ×2 (09:40→14:56)
[2019-12-10] MEDS: MULTIVITAMIN with MINERAL TABLET. PO SCH (09:40)
[2019-12-10] MEDS: SENNOSIDES/DOCUSATE 8.6/50MG TABLET. PO SCH (09:40)
[2019-12-10] MEDS: LISINOPRIL 5 MG TABLET. PO SCH (09:41)
[2019-12-10] MEDS: oxyCODONE/APAP 5/325 1 TAB TABLET PO PRN ×3 (09:45→15:50)
[2019-12-10 10:27] VITALS: BP 134/55
--- NOTE | 2019-12-10 12:20 | NUR ---
SS following up with discharge planning. SS reviewed pt chart and discussed with pt RN. Pt is currently on room air. PT/OT evaluated and recommended home with home healthcare. SS met with pt and discussed discharge planning and home healthcare. Pt agreeable to home healthcare with no preference of company. SS will continue to follow for discharge planning.
--- NOTE | 2019-12-10 14:16 | DISCH ---
DISCHARGE INSTRUCTIONS Condition on Discharge Condition on Discharge: Stable Activity After Discharge Activity Instructions for Disc: Other ROM activity Other activity instructions: Arm to remain in sling Bathing Instructions: Shower-keep dressing dry Weight Bearing Status after Di: Non weight bearing Diet after Discharge Diet after Discharge: Regular Wound Incision Care Wound/Incision Care: Ice to area for comfort, Keep wound/cast CDI, Change dressing Contacting the DRKevyn after DC Call your doctor for: Concerns you may have Follow-Up Follow up with: Primary care provider regarding urinary retention Follow Up With: Ran in 2 wks Treatment/Equipment after DC Adaptive Equipment Issued: None RONI CARTY II, MD Dec 10, 2019 14:16
--- NOTE | 2019-12-10 14:17 | PDOC3 ---
Discharge Summary Visit Information Date of Admission: Dec 09, 2019 Date of Discharge: Dec 10, 2019 Admitting Diagnosis: Left proximal humerus fracture malunion Brief Hospital Course Allergies Allergies Coded Allergies Type Severity Reaction Last Updated Verified NSAIDS (Non-Steroidal Anti-Inflamma Adverse Reaction Severe 06/24/19 Yes aspirin Adverse Reaction Severe 06/24/19 Yes Vital Signs Vital Signs Date Time Temp Pulse Resp B/P (MAP) Pulse Ox O2 Delivery O2 Flow Rate FiO2 12/10/19 12:42 92 Room Air 12/10/19 10:27 98.4 85 18 134/55 (81) 1.0 98.4 Lab Results Laboratory Tests Test 12/09/19 07:00 12/10/19 04:30 Prothrombin Time 12.8 SEC (11.7-14.0) Prothromb Time International Ratio 1.0 (0.8-1.1) Hemoglobin 9.7 g/dL (12.0-15.5) Hematocrit 28.3 % (36.0-47.0) Mean Corpuscular Hemoglobin Concent 34 g/dL (31-37) Laboratory Tests Test 12/10/19 04:30 Hemoglobin 9.7 g/dL (12.0-15.5) Hematocrit 28.3 % (36.0-47.0) Mean Corpuscular Hemoglobin Concent 34 g/dL (31-37) Brief Hospital Course Ms. Prieto is a 74 old female who had seen in my outpatient clinic for complaints of loss of shoulder function and pain after a proximal humerus fracture. Please see my outpatient consult notes. She tolerated surgery well and recovered well from anesthesia. [facility] and received ab[facility]. She had urinary retention and a steward placed.We adjusted her pain regimen to help control her pain and prior to discharge her pain is controlled on oral pain medicine. She underwent a voiding trial but was unable to void and bladder scan revealed a large residual so the Steward catheter was replaced with the decision to discharge her with the Steward in place and outpatient follow-up regarding this. Discharge Information Condition at Discharge: Stable Follow Up: Weeks Disposition/Orders: D/C to Home w/ HH Scheduled Acetaminophen (Tylenol) 325 Mg Tablet, 500 MG PO QID for ANALGESIA, (Reported) Entered as Reported by: SALLY HENSLEY on 11/25/19 1420 Last Taken: Unknown Dose on 12/09/19 0500 Last Action: HELD on 12/09/19748 by MATY CARTY MD Citalopram Hydrobromide (Citalopram Hbr) 20 Mg Tablet, 1 TAB PO BID, #30 Ref 5 (Reported) Entered as Reported by: DAWOOD MARTINEZ on 02/06/18 1109 Last Taken: Unknown Dose on 12/08/19 Last Action: Continued on 12/09/19748 by MATY CARTY MD Dicyclomine Hcl (Dicyclomine Hcl) 20 Mg Tablet, 20 MG PO QID, (Reported) Entered as Reported by: DAWOOD MARTINEZ on 02/06/18 110 Last Taken: Unknown Dose on 12/08/19 Last Action: Converted on 12/09/19748 by MATY CARTY MD Ferrous Fumarate (Ferrous Fumarate) 89 Mg Tablet, 89 MG PO DAILY for ANEMIC, (Reported) Entered as Reported by: SALLY HENSLEY on 11/25/19 1355 Last Taken: Unknown Dose on 12/08/19 Last Action: Converted on 12/09/19748 by MATY CARTY MD Lisinopril (Lisinopril) 5 Mg Tablet, 20 MG PO DAILY for HTN, (Reported) Entered as Reported by: DAWOOD MARTINEZ on 02/06/18 1106 Last Taken: Unknown Dose on 12/08/19 Last Action: Continued on 12/09/19748 by MATY CARTY MD Oxybutynin Chloride (Oxybutynin Chloride) 5 Mg Tablet, 1 TAB PO TID for HTN, #60 Ref 11 (Reported) Entered as Reported by: DAWOOD MARTINEZ on 02/06/18 1108 Last Taken: Unknown Dose on 12/08/19 Last Action: Continued on 12/09/19748 by MATY CARTY MD [Ostramatrix] , 1 CAP PO 6XDAY for [employer], (Reported) Entered as Reported by: ROSEANN TIDWELL on 06/24/19 1431 Last Taken: Unknown Dose on 12/08/19 Last Action: HELD on 12/09/19748 by MATY CARTY MD Scheduled PRN Zolpidem Tartrate (Zolpidem Tartrate) 10 Mg Tablet, 10 MG PO PRN QHS PRN for INSOMNIA, Ref 0 (Reported) Entered as Reported by: DAWOOD ABDIMARKY on 02/06/18 1109 Last Taken: Unknown Dose on 12/08/19 Last Action: Converted on 12/09/19 0749 by MATY CARTY MD Patient Instructions Patient Instructions She will be discharged home, f/u with PCP regarding urinary retention. She will have [facility] st up, NWB operative extremity. She will f/u with me in 2 wks, sooner should a problem arise. Wound care instructions discussed. Justicifation of Admission Dx: Justifications for Admission: Justification of Admission Dx: No RONI CARTY II, MD Dec 10, 2019 14:17
--- NOTE | 2019-12-10 14:19 | SNU/HH DC ---
DISCHARGE WITH HOME HEALTH DISCHARGE INFORMATION: Discharge Date: Dec 10, 2019 Final Diagnosis: Left reverse total shoulder arthroplasty Condition on Discharge: Stable CODE STATUS: Code Status: Full HOME HEALTH: Face to Face: I certify this patient is under my care and that I, or a nurse practitioner or physician's animal assistant working with me, had a face to face encounter that meets the physician face to face encounter requirements with this patient on [12/10/2019]. Medical Complications: S/P Joint Replacement, Other Alf For: Urinary Catheter Care RN For Eval/Treatment: Yes Physical Therapy For: Evalulation/Treatment Occupational Therapy For: Evaluation/Treatment Pt Meets Homebound Status: Unsteady balance w/ amb,, Unable to negotiate home POST DISCHARGE ORDERS: Activity Instructions for Disc: Other ROM activity Weight Bearing Status after Di: Non weight bearing Bathing Instructions: Shower-keep dressing dry DIET AFTER DISCHARGE: Regular Wound/Incision Care: Ice to area for comfort, Keep wound/cast CDI, Change dressing Other wound/incision instructi: No range of motion at left shoulder for 2 weeks, remain in sling FOLLOW-UP: Follow up with: Primary care provider regarding urinary retention Follow Up With: Ran in 2 wks TREATMENT/EQUIPMENT ORDERS: Adaptive Equipment Issued: None CERTIFICATION STATEMENT: Certification Statement: Certification Statement: Based on the above finding, I certify that this patient is confined to the home and needs intermittent longterm care, physical therapy and/or speech therapy, or continues to need occupational therapy.~ This patient is under my care, and I have initiated the establishment of the plan of care.~ This patient will be followed by myself or a community physician who will periodically review the plan of care. Home Meds Reported Medications Acetaminophen (TYLENOL) 325 Mg Tablet, 500 MG PO QID for ANALGESIA, TAB 11/25/19 Ferrous Fumarate (FERROUS FUMARATE) 89 Mg Tablet, 89 MG PO DAILY for ANEMIC, TAB 11/25/19 [Ostramatrix] No Conflict Check, 1 CAP PO 6XDAY for [employer] 06/24/19 Zolpidem Tartrate (ZOLPIDEM TARTRATE) 10 Mg Tablet, 10 MG PO PRN QHS PRN for IN SOMNIA, TAB 0 Refills 02/06/18 Dicyclomine Hcl (DICYCLOMINE HCL) 20 Mg Tablet, 20 MG PO QID, TAB 02/06/18 Citalopram Hydrobromide (CITALOPRAM HBR) 20 Mg Tablet, 1 TAB PO BID, #30 TAB 5 Refills 02/06/18 Oxybutynin Chloride (OXYBUTYNIN CHLORIDE) 5 Mg Tablet, 1 TAB PO TID for HTN, #60 TAB 11 Refills 02/06/18 Lisinopril (LISINOPRIL) 5 Mg Tablet, 20 MG PO DAILY for HTN 02/06/18 RONI CARTY II, MD Dec 10, 2019 14:19
--- NOTE | 2019-12-10 14:37 | NUR ---
SS following up with discharge planning. Discharge orders received for home healthcare. SS phoned and faxed referral and discharge orders to [facility], ; fax [phone]. Pt's RN notified.
[2019-12-10 14:39] VITALS: BP 125/50
[2019-12-10] MEDS ORDERED: BISACODYL 10 MG SUPP.RECT. PR PRN (16:00)
== END 2019-12-10 16:14 | disposition home health service (06) | DRG 483 ==
LOC: 2 SOUTH 12-09 06:31 → EDSTATUS 12-09 07:30
PROVIDERS: ADMIT Orthopaedic Surgery Sports Medicine; ATTEND Orthopaedic Surgery Sports Medicine
PROC: 0RRK00Z Replacement of Left Shoulder Joint with Reverse Ball and Socket Synthetic Substitute, Open Approach (ICD-10-PCS; principal; 2019-12-09 07:30)
DX: S42.292A Other displaced fracture of upper end of left humerus, initial encounter for closed fracture (principal); I10 Essential (primary) hypertension; D64.9 Anemia, unspecified; Z79.899 Other long term (current) drug therapy; Z88.8 Allergy status to other drugs, medicaments and biological substances; X58.XXXA Exposure to other specified factors, initial encounter; Y93.89 Activity, other specified; Y92.89 Other specified places as the place of occurrence of the external cause; Y99.8 Other external cause status
CPT/HCPCS: 36415; 73030; 85014; 85018; 85610; 86850; 86900; 86901; A7015; C1713; J0171; J0330; J0690; J0780; J1100; J1885; J2270; J2370; J2405; J2704; J2710; J2795; J3010; J3490; J7030; J7120; 97110-GP; 97116-GP; 97535-GO; A4565; C1769; G0378; Q0164

== ENCOUNTER → 2019-12-05 | Outpatient (CLI) | payer MEDICARE | END | disposition home or self-care (01) | LOC: LAB 12:58 | PROVIDERS: ATTEND Orthopaedic Surgery Sports Medicine | DX: Z11.59 Encounter for screening for other viral diseases (principal) | CPT/HCPCS: U0003-CS ==

== ENCOUNTER 2019-12-11 11:44 | Emergency (ER) | payer MEDICARE ==
[~2019-12-11] VITALS: Ht 165.1 cm; Wt 60.0 kg
--- NOTE | 2019-12-11 13:58 | PHYS DOC ---
Past Medical History Past Medical History: CAD, Hypertension, Other Additional Past Medical Histor: incontinence, pneumothorax, skin CA, stomach ulcer Past Surgical History: Other Additional Past Surgical Histo: shoulder, right rotator cuff, "lung sx for pneumothorax" Smoking Status: Current Every Day Smoker Alcohol Use: Occasionally General Adult EDM: Chief Complaint: URINARY RETENTION HPI: HPI: Patient is a 74 year old female who presents with urinary retention. Patient reports that she had a shoulder replacement on the left side 2 days ago. She followed up with her doctor yesterday because she was unable to urinate after the surgery and a catheter was placed. Patient reports that this morning around 3 AM the leg bag dropped onto the ground and the Rivera catheter fell out. Patient reports that she has been unable to urinate since the catheter has fallen out. Patient reports bladder pressure. She denies any pain. Review of Systems: Review of Systems: Constitutional: Denies fever or chills. [] GI: Denies abdominal pain, nausea, vomiting, or diarrhea. [] : See HPI Psychiatric: Denies depression or anxiety. [] Heart Score: Risk Factors: Risk Factors: DM, Current or recent (<one month) smoker, HTN, HLP, family history of CAD, obesity. Risk Scores: Score 0 - 3: 2.5% MACE over next 6 weeks - Discharge Home Score 4 - 6: 20.3% MACE over next 6 weeks - Admit for Clinical Observation Score 7 - 10: 72.7% MACE over next 6 weeks - Early Invasive Strategies Allergies: Allergies: Allergies Coded Allergies Type Severity Reaction Last Updated Verified NSAIDS (Non-Steroidal Anti-Inflamma Adverse Reaction Severe 06/24/19 Yes aspirin Adverse Reaction Severe 06/24/19 Yes Physical Exam: PE: Constitutional: Well developed, well nourished, no acute distress, non-toxic appearance. [] HENT: Normocephalic, atraumatic, bilateral external ears normal, nose normal. [] Eyes: PERRLA, EOMI, conjunctiva normal, no discharge. [] Neck: Normal range of motion, no stridor. [] Cardiovascular:Heart rate regular rhythm Lungs & Thorax: Respirations even and unlabored, no retractions, no respiratory distress Abdomen: soft, no tenderness Skin: Warm, dry, no erythema, no rash. [] Extremities: No cyanosis, ROM intact, no edema. [] Neurologic: Alert and oriented X 3, no focal deficits noted. [] Psychologic: Affect normal, judgement normal, mood normal. [] Current Patient Data: Vital Signs: Vital Signs Date Time Temp Pulse Resp B/P (MAP) Pulse Ox O2 Delivery O2 Flow Rate FiO2 12/11/19 12:58 98.5 89 16 177/79 (111) 95 Room Air 98.5 EKG: EKG: [] Radiology/Procedures: Radiology/Procedures: [] Course & Med Decision Making: Course & Med Decision Making Pertinent Labs and Imaging studies reviewed. (See chart for details) Patient is a 74-year-old female coming in for urinary retention after her Rivera catheter fell out this morning. Bladder scan revealed 600 mls of retained urine. Rivera catheter placed by nurse. [] Dragon Disclaimer: Dragon Disclaimer: This electronic medical record was generated, in whole or in part, using a voice recognition dictation system. Departure Departure Impression: Primary Impression: Encounter for Rivera catheter replacement Disposition: HOME, SELF-CARE Condition: STABLE Referrals: CHER SCHMIDT (PCP) Patient Instructions: Rivera Catheter Care, Adult Additional Instructions: Follow up with your primary care doctor for removal of your catheter and/or a referral to a urologist. Justicifation of Admission Dx: Justifications for Admission: Justification of Admission Dx: N/A CLIFTON BAEZA M[employer]IPLE [employer]IDE OPERATOR Dec 11, 2019 13:58
[2019-12-11 14:00] VITALS: BP 165/74
[2019-12-11] MEDS ORDERED: HYDROcodone/APAP 5/325MG 1 TAB TABLET PO ONE (14:30)
== END 2019-12-11 14:39 | disposition home or self-care (01) ==
LOC: ER 11:44
DX: R33.9 Retention of urine, unspecified (principal); I10 Essential (primary) hypertension; I11.9 Hypertensive heart disease without heart failure; F17.200 Nicotine dependence, unspecified, uncomplicated; Z98.890 Other specified postprocedural states; Z46.6 Encounter for fitting and adjustment of urinary device; Z88.8 Allergy status to other drugs, medicaments and biological substances; Z88.6 Allergy status to analgesic agent
CPT/HCPCS: 99284; A4314

== ENCOUNTER 2020-03-03 09:36 | Inpatient (IN) | payer MEDICARE ==
[~2020-03-03] VITALS: Ht 165.1 cm; Wt 58.0 kg
[2020-03-03] MEDS ORDERED: MORPHINE SULFATE 10 MG/ML VIAL. IV ONE (10:00)
[2020-03-03 10:23] LABS: BASO # 0.1 x10^3/uL (0.0-0.2); BASO % 1 % (0-3); EOS % 0 % (0-3); HEMATOCRIT 30.8 % (36.0-47.0); HEMOGLOBIN 10.6 g/dL (12.0-15.5); LYMPH # 0.8 x10^3/uL (1.0-4.8); LYMPH % 7 % (24-48); MEAN CORPUSCULAR HEMOGLOBIN 29 pg (25-35); MEAN CORPUSCULAR HGB CONC 35 g/dL (31-37); MEAN CORPUSCULAR VOLUME 85 fL (79-100); MONO # 0.4 x10^3/uL (0.0-1.1); MONO % 4 % (0-9); NEUT % 89 % (31-73); PLATELET COUNT 358 x10^3/uL (140-400); RED BLOOD COUNT 3.64 x10^6/uL (3.50-5.40); WHITE BLOOD COUNT 11.2 x10^3/uL (4.0-11.0)
[2020-03-03 10:34] LABS: CALCIUM 9.2 mg/dL (8.5-10.1); CREATININE 0.9 mg/dL (0.6-1.0); GFR 60.9; POTASSIUM 4.2 mmol/L (3.5-5.1)
--- NOTE | 2020-03-03 10:38 | RAD ---
Right shoulder 2 views INDICATION: Right shoulder pain. COMPARISON: Left shoulder x-rays of 12/09/2019 and 11/14/2019 FINDINGS: An acute appearing comminuted fracture of the proximal right humerus is evident with inferior displacement of the humeral shaft relative to the glenoid rim and mild anterior displacement. The distal clavicle and acromion appear intact. There are inferior osteophytic spurs on the acromial margin. There is associated soft tissue swelling. Visualized lungs are lucent in a pattern suggesting possible underlying COPD. IMPRESSION: Acute comminuted fracture of the surgical neck of the right humerus with mild anterior inferior displacement of the humeral shaft as described. Electronically signed by: Homar Tyler MD (03/03/2020 10:35 AM) [id number]
--- NOTE | 2020-03-03 10:55 | PHYS DOC ---
Past Medical History Past Medical History: CAD, Hypertension, Other Additional Past Medical Histor: incontinence, pneumothorax, skin CA, stomach ulcer Past Surgical History: Other Additional Past Surgical Histo: shoulder, right rotator cuff, "lung sx for pneumothorax" Smoking Status: Current Every Day Smoker Alcohol Use: Occasionally General Adult EDM: Chief Complaint: SHOULDER INJURY HPI: HPI: Patient is a 75-year-old female who presents to the emergency room complaining of right shoulder and right chest pain after a fall overnight. Patient states that she was getting out of bed when this will happen. She has had multiple falls recently. She just had surgery for humerus fracture on the left side and is still in rehab for this. She states she landed straight on her arm and has been having a lot of arm pain. She states that the chest pain is mild though it does increase with coughing. It does not increase with deep breaths. She denies hitting her head, losing consciousness, neck pain. Review of Systems: Review of Systems: General: Denies fever, chills, sweats, fatigue Eyes: Denies drainage, blurred vision, eye redness HENT: Denies rhinorrhea, sore throat, earache Respiratory: Denies cough, shortness of breath, wheezing Cardiac: Denies edema, palpitations reports. chest pain GI: Denies abdominal pain, Nausea, vomiting MSK: Denies back pain, neck pain reports shoulder pain Skin: Denies rash, jaundice Neuro: Denies headache, dizziness Psychiatric: Denies SI/HI Heart Score: Risk Factors: Risk Factors: DM, Current or recent (<one month) smoker, HTN, HLP, family history of CAD, obesity. Risk Scores: Score 0 - 3: 2.5% MACE over next 6 weeks - Discharge Home Score 4 - 6: 20.3% MACE over next 6 weeks - Admit for Clinical Observation Score 7 - 10: 72.7% MACE over next 6 weeks - Early Invasive Strategies Current Medications: Current Medications Medications (Trade) Dose Ordered Sig/Jess Start Time Stop Time Status Last Admin Dose Admin Morphine Sulfate (Morphine Sulfate) 5 mg 1X ONCE 03/03/20 10:00 03/03/20 10:02 DC 03/03/20 10:12 5 MG Allergies: Allergies: Allergies Coded Allergies Type Severity Reaction Last Updated Verified NSAIDS (Non-Steroidal Anti-Inflamma Adverse Reaction Severe 06/24/19 Yes aspirin Adverse Reaction Severe 06/24/19 Yes Physical Exam: PE: General: Awake, alert, NAD. Well Nourished, well hydrated. Cooperative HEENT: Atraumatic, EOMI, PERRL, airway patent, moist oral mucosa Neck: Supple, trachea midline Respiratory: CTA bilaterally, normal effort, no wheezing/crackles, right-sided chest wall tenderness CV: RRR, no murmur, cap refill <2 GI: Soft, nondistended, nontender, no masses MSK: Right shoulder deformity with swelling and bruising Skin: Warm, dry, intact Neuro: A&O x3, speech NL, sensory and motor grossly intact, no focal deficits Psych: Normal affect, normal mood, not suicidal or homicidal Current Patient Data: Labs: Laboratory Tests Test 03/03/20 09:53 White Blood Count 11.2 x10^3/uL (4.0-11.0) H Red Blood Count 3.64 x10^6/uL (3.50-5.40) Hemoglobin 10.6 g/dL (12.0-15.5) L Hematocrit 30.8 % (36.0-47.0) L Mean Corpuscular Volume 85 fL (79-100) Mean Corpuscular Hemoglobin 29 pg (25-35) Mean Corpuscular Hemoglobin Concent 35 g/dL (31-37) Red Cell Distribution Width 17.0 % (11.5-14.5) H Platelet Count 358 x10^3/uL (140-400) Neutrophils (%) (Auto) 89 % (31-73) H Lymphocytes (%) (Auto) 7 % (24-48) L Monocytes (%) (Auto) 4 % (0-9) Eosinophils (%) (Auto) 0 % (0-3) Basophils (%) (Auto) 1 % (0-3) Neutrophils # (Auto) 10.0 x10^3/uL (1.8-7.7) H Lymphocytes # (Auto) 0.8 x10^3/uL (1.0-4.8) L Monocytes # (Auto) 0.4 x10^3/uL (0.0-1.1) Eosinophils # (Auto) 0.0 x10^3/uL (0.0-0.7) Basophils # (Auto) 0.1 x10^3/uL (0.0-0.2) Platelet Estimate Pending Sodium Level 127 mmol/L (136-145) L Potassium Level 4.2 mmol/L (3.5-5.1) Chloride Level 93 mmol/L (98-107) L Carbon Dioxide Level 23 mmol/L (21-32) Anion Gap 11 (6-14) Blood Urea Nitrogen 11 mg/dL (7-20) Creatinine 0.9 mg/dL (0.6-1.0) Estimated GFR (Cockcroft-Gault) 60.9 Glucose Level 145 mg/dL (70-99) H Calcium Level 9.2 mg/dL (8.5-10.1) Laboratory Tests 03/03/20 09:53 Laboratory Tests 03/03/20 09:53 Vital Signs: Vital Signs Date Time Temp Pulse Resp B/P (MAP) Pulse Ox O2 Delivery O2 Flow Rate FiO2 03/03/20 10:45 18 99 Room Air 03/03/20 09:45 98.7 89 182/86 (118) 98.7 EKG: EKG: [] Radiology/Procedures: Radiology/Procedures: [] Course & Med Decision Making: Course & Med Decision Making Pertinent Labs and Imaging studies reviewed. (See chart for details) Patient is 75-year-old female who presents the emergency room complaining of right shoulder and chest pain after a fall yesterday. She did not hit her head and does not need work-up for head trauma at this time. X-ray shows a humerus fracture. Patient does not feel like she is going to be able to take care of he rself at home and her does not feel like he is going to be able to take care of her at home with her not being able to use either shoulder. CT of the chest was ordered to evaluate for rib fractures. Patient will need to be admitted. Orthopedic surgery was consulted for the shoulder. Work up was reviewed and was remarkable for humerus fracture. At this time, patient would benefit from further work up and management. Patient is not stable for discharge at this time. Results, vitals, interventions, and plan was discussed with the patient. Patient was given opportunity to ask any questions and are in agreement with plan for admission. Patient was discussed with admitting physician and bridge admission orders were placed. Further care will be managed by inpatient team. Dragon Disclaimer: Dragon Disclaimer: This electronic medical record was generated, in whole or in part, using a voice recognition dictation system. Departure Departure Impression: Primary Impression: Closed fracture of right humerus Additional Impressions: Rib contusion Falls frequently Disposition: ADMITTED INPATIENT Condition: STABLE Referrals: CHER SCHMIDT (PCP) Justicifation of Admission Dx: Justifications for Admission: Justification of Admission Dx: Yes Fracture: Fracture YAQUELIN ESTRADA MD Mar 03, 2020 10:55
--- NOTE | 2020-03-03 10:59 | RAD ---
EXAM: CT Chest without IV contrast INDICATION: Reason: R sided chest pain, trauma / Spl. Instructions: / History: TECHNIQUE: Multi-detector row CT images were acquired from the thoracic inlet through the upper abdomen without the use of IV contrast. Sagittal and coronal images were acquired from the transaxial data. All CT scans performed at this facility utilize dose optimization techniques as appropriate to the exam, including the following: Automated exposure control and adjustment of the mA and/or KV according to patient size (this includes techniques or standardized protocols for targeted exams where dose is indication/reason for exam). COMPARISON: 11/25/2019 chest x-ray FINDINGS: The absence of IV contrast limits evaluation of soft tissue pathology. CARDIOVASCULAR: Dense aortic calcifications. No evidence of intramural hematoma or thoracic aortic aneurysm. MEDIASTINUM & ZORAIDA: No adenopathy or masses. Mildly patulous thoracic esophagus. LUNGS: Moderate centrilobular pattern emphysema. PLEURAL SPACE: No pleural effusions or pneumothorax. OSSEOUS & SOFT TISSUE: No acute fractures are identified. The bones are demineralized and there is left reverse total humeral hemiarthroplasty redemonstrated. ABDOMEN: The visualized portions of the upper abdomen are unremarkable. IMPRESSION: Emphysema. No acute traumatic findings in the chest shown on noncontrast chest CT Electronically signed by: Homra Tyler MD (03/03/2020 10:57 AM) [id number]
[2020-03-03 11:07] LABS: % BANDS 2 % (0-9); % LYMPHS 12 % (24-48); % MONOS 3 % (0-10); % SEGS 83 % (35-66)
[2020-03-03 11:08] LABS: PLT ESTIMATE ADEQUATE (ADEQUATE)
[2020-03-03] MEDS ORDERED: HYDROmorphone 2 MG/ML VIAL IVP ONE ×2 (11:15→12:45)
--- NOTE | 2020-03-03 12:05 | PDOC1 ---
History and Physical Date of Admission Date of Admission DATE: 03/03/20 TIME: 12:01 Identification/Chief Complaint Chief Complaint Fall, right shoulder pain Source Source: Chart review, Patient History of Present Illness History of Present Illness Ms Beaulieu is a 75 yo F w/ PMHX CAD, emphysema, HTN who presents to the emergency room complaining of right shoulder and right chest pain after a fall overnight. Patient states that she was getting out of bed when this happened. She states she landed straight on her arm and has been having a lot of arm pain. She states that the chest pain is mild though it does increase with coughing. It does not increase with deep breaths. She denies hitting her head, losing consciousness, neck pain. She has had multiple falls recently. She just had reverse shoulder arthroplasty for humerus fracture on the left side and is still in outpatient rehab for this. CT chest shows emphysematous changes. Right should XR reveals an acute comminuted fracture of the surgical neck of the right humerus with mild anterior inferior displacement of the humeral shaft. Blood pressure on admit was 175/101. WBC 11.2, Hb 10.6, platelets 358, NA 127, K4.2, BUN 11, CR 0.9, glucose 145 Admitted for further care, unable to care for herself with bilateral arm fractures. Past Medical History Cardiovascular: CAD, HTN GI: GERD, Peptic Ulcer disease Renal/: Urinary Incontinence Past Surgical History Past Surgical History 12/09/19 left shoulder reverse arthroplasty, right rotator cuff, "lung sx for pneu mothorax" Past Surgical History: Other (Left total shoulder) Family History Family History: Hypertension Social History Smoke: 1 pack per day ALCOHOL: none Drugs: None Current Problem List Problem List Problems Medical Problems: (1) Closed fracture of right humerus Status: Acute (2) Falls frequently Status: Acute (3) Rib contusion Status: Acute Current Medications Current Medications Current Medications Morphine Sulfate (Morphine Sulfate) 5 mg 1X ONCE IV Last administered on 03/03/20at 10:12; Start 03/03/20 at 10:00; Stop 03/03/20 at 10:02; Status DC Hydromorphone HCl (Dilaudid) 1 mg 1X ONCE IVP Last administered on 03/03/20at 11:14; Start 03/03/20 at 11:15; Stop 03/03/20 at 11:16; Status DC Active Scripts Active Reported Tylenol (Acetaminophen) 325 Mg Tablet 500 Mg PO QID Ferrous Fumarate 89 Mg Tablet 89 Mg PO DAILY [Ostramatrix] 1 Cap PO 6XDAY Zolpidem Tartrate 10 Mg Tablet 10 Mg PO PRN QHS PRN Dicyclomine Hcl 20 Mg Tablet 20 Mg PO QID Citalopram Hbr (Citalopram Hydrobromide) 20 Mg Tablet 1 Tab PO BID Oxybutynin Chloride 5 Mg Tablet 1 Tab PO TID Lisinopril 5 Mg Tablet 20 Mg PO DAILY Allergies Allergies: Coded Allergies: NSAIDS (Non-Steroidal Anti-Inflamma (Verified Adverse Reaction, Severe, 06/24/19) BLEEDING ULCER aspirin (Verified Adverse Reaction, Severe, 06/24/19) BLEEDING ULCER ROS General: YES: Fatigue, Malaise; No: Chills, Night Sweats, Appetite, Other PSYCHOLOGICAL ROS: YES: Depression; No: Anxiety, Behavioral Disorder, Concentration difficultie, Decreased libido, Disorientation, Hallucinations, Hostility, Irritablity, Memory difficulties, Mood Swings, Obsessive thoughts, Physical abuse, Sexual abuse, Sleep disturbances, Suicidal ideation, Other Eyes: No Blurry vision, No Decreased vision, No Double vision, No Dry eyes, No Excessive tearing, No Eye Pain, No Itchy Eyes, No Loss of vision, No Photophobia, No Scotomata, No Uses contacts, No Uses glasses, No Other HEENT: No: Heacaches, Visual Changes, Hearing change, Nasal congestion, Nasal discharge, Oral lesions, Sinus pain, Sore Throat, Epistaxis, Sneezing, Snoring, Tinnitus, Vertigo, Vocal changes, Other ALLERGY AND IMMUNOLOGY: No: Hives, Insect Bite Sensitivity, Itchy/Watery Eyes, Nasal Congestion, Post Nasal Drip, Seasonal Allergies, Other Hematological and Lymphatic: No: Bleeding Problems, Blood Clots, Blood Transfusions, Brusing, Night Sweats, Pallor, Swollen Lymph Nodes, Other ENDOCRINE: No: Breast Changes, Galactorrhea, Hair Pattern Changes, Hot Flashes, Malaise/lethargy, Mood Swings, Palpitations, Polydipsia/polyuria, Skin Changes, Temperature Intolerance, Unexpected Weight Changes, Other Breast: No New/Changing Breast Lumps, No Nipple changes, No Nipple discharge, No Other Respiratory: YES: Cough; No: Hemoptysis, Orthopnea, Pleuritic Pain, Shortness of breath, SOB with excertion, Sputum Changes, Stridor, Tachypnea, Wheezing, Other Cardiovascular: No Chest Pain, No Palpitations, No Orthopnea, No Paroxysmal Noc. Dyspnea, No Edema, No Lt Headedness, No Other Gastrointestinal: Yes Nausea, Yes Vomiting; No Abdominal Pain, No Diarrhea, No Constipation, No Melena, No Hematochezia, No Other Genitourinary: YES Incontinence, YES Urgency; No Dysuria, No Frequency, No Hematuria, No Retention, No Discharge, No Pain, No Flank Pain, No Other, No , No , No , No , No , No , No Musculoskeletal: Yes Gait Disturbance; No Joint Pain, No Joint Stiffness, No Joint Swelling, No Muscle Pain, No Muscular Weakness, No Pain In:, No Swelling In:, No Other Neurological: Yes Bowel/Bladder ControlChng, Yes Gait Disturbance; No Behavorial Changes, No Confusion, No Dizziness, No Headaches, No Impaired Coord/balance, No Memory Loss, No Numbness/Tingling, No Seizures, No Speech Problems, No Tremors, No Visual Changes, No Weakness, No Other Skin: No Dry Skin, No Eczema, No Hair Changes, No Lumps, No Mole Changes, No Mottling, No Nail Changes, No Pruritus, No Rash, No Skin Lesion Changes, No Other, No Acne Physical Exam General: Alert, Oriented X3, Cooperative, moderate distress HEENT: Atraumatic, PERRLA, EOMI, Mucous membr. moist/pink Lungs: Other (Scattered wheezing) Heart: S1S2, RRR, no thrills, no rubs, no gallops, no murmurs Abdomen: Normal bowel sounds, Soft, No tenderness, No hepatosplenomegaly, No masses Extremities: No clubbing, No cyanosis, No edema, Normal pulses, Other (Right shoulder with bruising, swelling) Skin: No rashes, No breakdown, No significant lesion Neuro: Normal gait, Normal speech, Normal tone, Sensation intact, Cranial nerves 3-12 NL, Reflexes 2+ Psych/Mental Status: Mental status NL, Mood NL Vitals Vitals Vital Signs Date Time Temp Pulse Resp B/P (MAP) Pulse Ox O2 Delivery O2 Flow Rate FiO2 03/03/20 11:14 16 99 Room Air 9/29/20 11:00 78 175/101 (125) 03/03/20 09:45 98.7 98.7 Labs Labs Laboratory Tests Test 03/03/20 09:53 White Blood Count 11.2 x10^3/uL (4.0-11.0) Red Blood Count 3.64 x10^6/uL (3.50-5.40) Hemoglobin 10.6 g/dL (12.0-15.5) Hematocrit 30.8 % (36.0-47.0) Mean Corpuscular Volume 85 fL (79-100) Mean Corpuscular Hemoglobin 29 pg (25-35) Mean Corpuscular Hemoglobin Concent 35 g/dL (31-37) Red Cell Distribution Width 17.0 % (11.5-14.5) Platelet Count 358 x10^3/uL (140-400) Neutrophils (%) (Auto) 89 % (31-73) Lymphocytes (%) (Auto) 7 % (24-48) Monocytes (%) (Auto) 4 % (0-9) Eosinophils (%) (Auto) 0 % (0-3) Basophils (%) (Auto) 1 % (0-3) Neutrophils # (Auto) 10.0 x10^3/uL (1.8-7.7) Lymphocytes # (Auto) 0.8 x10^3/uL (1.0-4.8) Monocytes # (Auto) 0.4 x10^3/uL (0.0-1.1) Eosinophils # (Auto) 0.0 x10^3/uL (0.0-0.7) Basophils # (Auto) 0.1 x10^3/uL (0.0-0.2) Segmented Neutrophils % 83 % (35-66) Band Neutrophils % 2 % (0-9) Lymphocytes % 12 % (24-48) Monocytes % 3 % (0-10) Platelet Estimate Adequate (ADEQUATE) Sodium Level 127 mmol/L (136-145) Potassium Level 4.2 mmol/L (3.5-5.1) Chloride Level 93 mmol/L (98-107) Carbon Dioxide Level 23 mmol/L (21-32) Anion Gap 11 (6-14) Blood Urea Nitrogen 11 mg/dL (7-20) Creatinine 0.9 mg/dL (0.6-1.0) Estimated GFR (Cockcroft-Gault) 60.9 Glucose Level 145 mg/dL (70-99) Calcium Level 9.2 mg/dL (8.5-10.1) Laboratory Tests Test 03/03/20 09:53 White Blood Count 11.2 x10^3/uL (4.0-11.0) Red Blood Count 3.64 x10^6/uL (3.50-5.40) Hemoglobin 10.6 g/dL (12.0-15.5) Hematocrit 30.8 % (36.0-47.0) Mean Corpuscular Volume 85 fL (79-100) Mean Corpuscular Hemoglobin 29 pg (25-35) Mean Corpuscular Hemoglobin Concent 35 g/dL (31-37) Red Cell Distribution Width 17.0 % (11.5-14.5) Platelet Count 358 x10^3/uL (140-400) Neutrophils (%) (Auto) 89 % (31-73) Lymphocytes (%) (Auto) 7 % (24-48) Monocytes (%) (Auto) 4 % (0-9) Eosinophils (%) (Auto) 0 % (0-3) Basophils (%) (Auto) 1 % (0-3) Neutrophils # (Auto) 10.0 x10^3/uL (1.8-7.7) Lymphocytes # (Auto) 0.8 x10^3/uL (1.0-4.8) Monocytes # (Auto) 0.4 x10^3/uL (0.0-1.1) Eosinophils # (Auto) 0.0 x10^3/uL (0.0-0.7) Basophils # (Auto) 0.1 x10^3/uL (0.0-0.2) Segmented Neutrophils % 83 % (35-66) Band Neutrophils % 2 % (0-9) Lymphocytes % 12 % (24-48) Monocytes % 3 % (0-10) Platelet Estimate Adequate (ADEQUATE) Sodium Level 127 mmol/L (136-145) Potassium Level 4.2 mmol/L (3.5-5.1) Chloride Level 93 mmol/L (98-107) Carbon Dioxide Level 23 mmol/L (21-32) Anion Gap 11 (6-14) Blood Urea Nitrogen 11 mg/dL (7-20) Creatinine 0.9 mg/dL (0.6-1.0) Estimated GFR (Cockcroft-Gault) 60.9 Glucose Level 145 mg/dL (70-99) Calcium Level 9.2 mg/dL (8.5-10.1) Images Images CT Chest: CARDIOVASCULAR: Dense aortic calcifications. No evidence of intramural hematoma or thoracic aortic aneurysm. MEDIASTINUM & ZORAIDA: No adenopathy or masses. Mildly patulous thoracic esophagus. LUNGS: Moderate centrilobular pattern emphysema. PLEURAL SPACE: No pleural effusions or pneumothorax. OSSEOUS & SOFT TISSUE: No acute fractures are identified. The bones are demineralized and there is left reverse total humeral hemiarthroplasty redemonstrated. ABDOMEN: The visualized portions of the upper abdomen are unremarkable. IMPRESSION: Emphysema. No acute traumatic findings in the chest shown on noncontrast chest CT Right Shoulder XR: An acute appearing comminuted fracture of the proximal right humerus is evident with inferior displacement of the humeral shaft relative to the glenoid rim and mild anterior displacement. The distal clavicle and acromion appear intact. There are inferior osteophytic spurs on the acromial margin. There is associated soft tissue swelling. Visualized lungs are lucent in a pattern suggesting possible underlying COPD. IMPRESSION: Acute comminuted fracture of the surgical neck of the right humerus with mild anterior inferior displacement of the humeral shaft as described. VTE Prophylaxis Ordered VTE Prophylaxis Devices: Yes VTE Pharmacological Prophylaxi: No Assessment/Plan Assessment/Plan A/P: Fall - will need gait assessment, given her left shoulder recovery may need skillled placement on d/c Right humerus fracture - IV dilaudid, hydrocodone for pain control. Ortho consulted. Hyponatremia - likely hypovolemic. will give NSS. Hold celexa as well. Monitor daily BMP CAD - will obtain pre-op EKG Hypertension - cont lisinopril Incontinence - previously required steward post-op, will monitor PVR. Check UA pre-op Emphysema - will order prn nebs H/o stomach ulcers - PPI Left shoulder fracture - recovering well FEN - NPO after midnight PPX - SCDs FULL CODE Dispo - inpatient Justifications for Admission Other Justification MAYRA LAYNE MD Mar 03, 2020 12:05
[2020-03-03 13:31] VITALS: BP 125/68
[2020-03-03] MEDS ORDERED: ONDA4TAB12 PO (13:56)
[2020-03-03] MEDS ORDERED: MAGNESIUM CITRATE 296 ML SOLUTION. PO PRN (14:15)
[2020-03-03] MEDS ORDERED: ONDANSETRON ODT 4 MG TAB.RAPDIS. PO PRN (14:15)
[2020-03-03] MEDS ORDERED: ACETAMINOPHEN 325 MG TABLET. PO PRN (14:15)
[2020-03-03] MEDS ORDERED: DOCUSATE SODIUM 100 MG CAPSULE. PO PRN (14:15)
[2020-03-03] MEDS: PSYLLIUM HUSK (SUGAR FREE) 1 PKT PACKET PO SCH (14:15)
[2020-03-03] MEDS: POLYETHYLENE GLYCOL 3350 17 GM PACKET. PO SCH (14:15)
[2020-03-03] MEDS: ONDANSETRON PF 4 MG/2 ML VIAL. IV PRN ×2 (14:31→23:38)
[2020-03-03] MEDS: OXYBUTYNIN CHLORIDE 5 MG TABLET PO SCH ×2 (14:32→20:44)
[2020-03-03] MEDS: HYDROmorphone 2 MG/ML VIAL IV PRN ×4 (14:37→23:05)
--- NOTE | 2020-03-03 14:59 | NUR ---
received from the ER. she is rating her pain an"8". and she is nauseated. originally had a follow up appt with Dr. Tong to check her left shoulder (recovering from reverse total shoulder). She has good radial pulses bilaterally. right arm is swollen bruised; placed in a sling with pillows to help support. medicated with Zofran and Dilaudid. admission history completed. awaiting Dr. Tong to see if he is going to take her to surgery [facility].
[2020-03-03 15:00] VITALS: BP 163/54
[2020-03-03] MEDS: DICYCLOMINE HCL 10 MG CAPSULE PO SCH ×3 (17:00→20:45)
[2020-03-03] MEDS ORDERED: ALBUTEROL SULFATE 2.5 MG/3 ML NEBU. NEB PRN (17:30)
[2020-03-03] MEDS: HYDROcodone/APAP 5/325MG 1 TAB TABLET PO PRN ×2 (17:59→22:19)
[2020-03-03] MEDS: METOCLOPRAMIDE HCL 10 MG/2 ML VIAL. IVP PRN (18:03)
--- NOTE | 2020-03-03 18:41 | EKG ---
[facility] [address] [place] [address] Test Date: 2020-03-03 Test Time: 18:35:09 Pat Name: CHRIS PATEL Department: Room: 42[facility] Gender: F Team Foreman: : 1945 Requested By: MAYRA LAYNE Order Number: [id number] Reading MD: Alfredito Atkins Measurements Intervals Egan Rate: 81 P: 54 RI: 154 QRS: 20 QRSD: 94 T: 43 QT: 384 QTc: 447 Interpretive Statements SINUS RHYTHM LEFT ATRIAL ABNORMALITY Electronically Signed On 03-04-2020 12:24:09 CDT by Alfredito Atkins
[2020-03-03 19:40] VITALS: BP 139/52
[2020-03-03] MEDS: BENZONATATE 100 MG CAPSULE. PO SCH (20:45)
[2020-03-03] MEDS ORDERED: IV NORMAL SALINE 1000ML BAG 1,000 ML IV ONE (20:45)
[2020-03-03 23:05] VITALS: BP 125/50
--- NOTE | 2020-03-04 02:00 | NUR ---
patient been refusing to get up to use the commode stated she dont feel she needs to go denies pressure on the bladder area assisted patient @ this time to use bedside commode patient tries to void with no success stated start feeling pressure on her bladder area will bladderscan,bladderscan done @ 0230 showing 859 ml will page
[2020-03-04] MEDS: HYDROmorphone 2 MG/ML VIAL IV PRN ×5 (02:06→19:44)
--- NOTE | 2020-03-04 02:45 | NUR ---
returned paged informed of the above situation with order to insert steward to dependent drainage .indwelling steward catheter gauge #16 inserted using aseptic technique draining slightly cloudy yellow urine.
[2020-03-04 03:15] VITALS: BP 139/55
[2020-03-04 03:21] LABS: BILIRUBIN,URINE NEGATIVE (NEG); CLARITY,URINE CLEAR; COLOR,URINE YELLOW; NITRITE,URINE NEGATIVE (NEG); PH,URINE 5.5 (<5.0-8.0); PROTEIN,URINE NEGATIVE (NEG-TRACE); UROBILINOGEN,URINE 0.2 mg/dL (0.2 mg/dL)
[2020-03-04 03:28] LABS: AMORPHOUS SEDIMENT,UR PRESENT /HPF; BACTERIA,URINE 0 /HPF (0-FEW); HYALINE CASTS, URINE MODERATE /HPF; RBC,URINE 0 /HPF (0-2); WBC,URINE RARE /HPF (0-4)
[2020-03-04 07:00] VITALS: BP 140/47
[2020-03-04] MEDS: METOCLOPRAMIDE HCL 10 MG/2 ML VIAL. IVP PRN (07:28)
[2020-03-04 07:31] LABS: CALCIUM 8.8 mg/dL (8.5-10.1); CREATININE 0.8 mg/dL (0.6-1.0); GFR 69.7; POTASSIUM 4.1 mmol/L (3.5-5.1)
[2020-03-04 07:40] LABS: PROTHROMBIN TIME PATIENT 13.2 SEC (11.7-14.0)
--- NOTE | 2020-03-04 08:46 | PDOC2 ---
CONSULT Date of Consult Date of Consult DATE: 03/04/20 TIME: 08:39 Reason for Consult Reason for Consult: Right proximal humerus fracture Referring Physician Referring Physician: Catrachito Identification/Chief Complaint Chief Complaint Right shoulder pain Source Source: Chart review, Patient History of Present Illness Reason for Visit: Patient is a very pleasant 75-year-old [id number] female who had recently been taken care of after a left reverse total shoulder arthroplasty done by myself recently. She missed stepped down the stairs yesterday, noted immediate pain deformity and difficulty using her arm secondary to shoulder pain. She was seen in the emergency department and found to have a proximal humerus fracture admitted for inability to care for herself secondary to her recent left shoulder surgery and her new right proximal humerus fracture. She tells me that the pain is is quite intense, she describes it as a deep ache, she does feel it up and down her arm. She has noticed a lot of swelling and bruising develop as well. She has been in a sling. She is receiving Dilaudid this helps a little bit. She denies any abnormal sensations in her hand. Past Medical History Cardiovascular: CAD, HTN GI: GERD, Peptic Ulcer disease Renal/: Urinary Incontinence Past Surgical History Past Surgical History: Other (Left reverse total shoulder) Family History Family History: Hypertension Social History 1 pack per day ALCOHOL: none Drugs: None Current Problem List Problem List Problems Medical Problems: (1) Closed fracture of right humerus Status: Acute (2) Falls frequently Status: Acute (3) Rib contusion Status: Acute Current Medications Current Medications Current Medications Morphine Sulfate (Morphine Sulfate) 5 mg 1X ONCE IV Last administered on 03/03/20at 10:12; Start 03/03/20 at 10:00; Stop 03/03/20 at 10:02; Status DC Hydromorphone HCl (Dilaudid) 1 mg 1X ONCE IVP Last administered on 03/03/20at 11:14; Start 03/03/20 at 11:15; Stop 03/03/20 at 11:16; Status DC Hydromorphone HCl (Dilaudid) 1 mg 1X ONCE IVP Last administered on 03/03/20at 13:02; Start 03/03/20 at 12:45; Stop 03/03/20 at 12:46; Status DC Ondansetron HCl (Zofran) 4 mg PRN Q4HRS PRN IV NAUSEA/VOMITING Last administered on 03/03/20at 23:38; Start 03/03/20 at 14:15 Acetaminophen (Tylenol) 650 mg PRN Q4HRS PRN PO TEMP OVER 100.4F OR MILD PAIN; Start 03/03/20 at 14:15 Docusate Sodium (Colace) 100 mg PRN BID PRN PO HARD STOOLS; Start 03/03/20 at 14:15 Hydromorphone HCl (Dilaudid) 1 mg PRN Q2HRS PRN IV SEVERE PAIN 7-10 Last administered on 03/04/20at 07:22; Start 03/03/20 at 14:15 Lisinopril (Prinivil) 20 mg DAILY PO ; Start 03/04/20 at 09:00 Ondansetron HCl (Zofran Odt) 4 mg PRN Q4HRS PRN PO NAUSEA; Start 03/03/20 at 14:15 Oxybutynin Chloride (Ditropan) 5 mg TID PO Last administered on 03/03/20at 20:44; Start 03/03/20 at 15:00 Dicyclomine HCl (Bentyl) 20 mg QID PO Last administered on 03/03/20at 20:45; Start 03/03/20 at 17:00 Ferrous Sulfate (Feosol) 325 mg DAILYWBKFT PO ; Start 03/04/20 at 08:00 Acetaminophen/ Hydrocodone Bitart (Lortab 5/325) 1 tab PRN Q4HRS PRN PO MODERATE PAIN Last administered on 03/03/20at 22:19; Start 03/03/20 at 14:15 Polyethylene Glycol (miraLAX PACKET) 17 gm DAILY PO ; Start 03/03/20 at 14:15 Psyllium Hydrophilic Mucilloid (Metamucil Fiber Packet) 1 pkt DAILY PO ; Start 03/03/20 at 14:15 Magnesium Citrate (Citroma) 296 ml PRN DAILY PRN PO CONSTIPATION; Start 02/04 02/22 at 14:15 Metoclopramide HCl (Reglan Vial) 5 mg PRN Q6HRS PRN IVP NAUSEA/VOMITING Last administered on 03/04/20at 07:28; Start 03/03/20 at 17:15 Albuterol Sulfate (Ventolin Neb Soln) 2.5 mg PRN Q4HRS PRN NEB SHORTNESS OF BREATH; Start 03/03/20 at 17:30 Benzonatate (Tessalon Perle) 100 mg [id number] PO Last administered on 03/03/20at 20:45; Start 03/03/20 at 21:00 Sodium Chloride 1,000 ml @ 75 mls/hr 1X ONCE IV Last administered on 03/03/20at 20:46; Start 03/03/20 at 20:45; Stop 03/04/20 at 10:04 Active Scripts Active Reported Ondansetron Odt (Ondansetron) 4 Mg Tab.rapdis 1 Tab PO PRN Q4HRS PRN Tylenol (Acetaminophen) 325 Mg Tablet 500 Mg PO QID Ferrous Fumarate 89 Mg Tablet 89 Mg PO DAILY [Ostramatrix] 1 Cap PO 6XDAY Zolpidem Tartrate 10 Mg Tablet 10 Mg PO PRN QHS PRN Dicyclomine Hcl 20 Mg Tablet 20 Mg PO QID Citalopram Hbr (Citalopram Hydrobromide) 20 Mg Tablet 1 Tab PO BID Oxybutynin Chloride 5 Mg Tablet 1 Tab PO TID Lisinopril 5 Mg Tablet 20 Mg PO DAILY Allergies Allergies: Coded Allergies: NSAIDS (Non-Steroidal Anti-Inflamma (Verified Adverse Reaction, Severe, 06/24/19) BLEEDING ULCER aspirin (Verified Adverse Reaction, Severe, 06/24/19) BLEEDING ULCER ROS General: No: Chills, Night Sweats, Fatigue, Malaise, Appetite, Other PSYCHOLOGICAL ROS: No: Anxiety, Behavioral Disorder, Concentration difficultie, Decreased libido, Depression, Disorientation, Hallucinations, Hostility, Irritablity, Memory difficulties, Mood Swings, Obsessive thoughts, Physical abuse, Sexual abuse, Sleep disturbances, Suicidal ideation, Other Eyes: No Blurry vision, No Decreased vision, No Double vision, No Dry eyes, No Excessive tearing, No Eye Pain, No Itchy Eyes, No Loss of vision, No Photophobia, No Scotomata, No Uses contacts, No Uses glasses, No Other HEENT: No: Heacaches, Visual Changes, Hearing change, Nasal congestion, Nasal discharge, Oral lesions, Sinus pain, Sore Throat, Epistaxis, Sneezing, Snoring, Tinnitus, Vertigo, Vocal changes, Other ALLERGY AND IMMUNOLOGY: No: Hives, Insect Bite Sensitivity, Itchy/Watery Eyes, Nasal Congestion, Post Nasal Drip, Seasonal Allergies, Other Hematological and Lymphatic: No: Bleeding Problems, Blood Clots, Blood Transfusions, Brusing, Night Sweats, Pallor, Swollen Lymph Nodes, Other ENDOCRINE: No: Breast Changes, Galactorrhea, Hair Pattern Changes, Hot Flashes, Malaise/lethargy, Mood Swings, Palpitations, Polydipsia/polyuria, Skin Changes, Temperature Intolerance, Unexpected Weight Changes, Other Respiratory: No: Cough, Hemoptysis, Orthopnea, Pleuritic Pain, Shortness of breath, SOB with excertion, Sputum Changes, Stridor, Tachypnea, Wheezing, Other Cardiovascular: No Chest Pain, No Palpitations, No Orthopnea, No Paroxysmal Noc. Dyspnea, No Edema, No Lt Headedness, No Other Gastrointestinal: No Nausea, No Vomiting, No Abdominal Pain, No Diarrhea, No Constipation, No Melena, No Hematochezia, No Other Genitourinary: No Dysuria, No Frequency, No Incontinence, No Hematuria, No Retention, No Discharge, No Urgency, No Pain, No Flank Pain, No Other, No , No , No , No , No , No , No Musculoskeletal: Yes Joint Pain, Yes Joint Stiffness, Yes Joint Swelling Neurological: No Behavorial Changes, No Bowel/Bladder ControlChng, No Confusion, No Dizziness, No Gait Disturbance, No Headaches, No Impaired Coord/balance, No Memory Loss, No Numbness/Tingling, No Seizures, No Speech Problems, No Tremors, No Visual Changes, No Weakness, No Other Skin: No Dry Skin, No Eczema, No Hair Changes, No Lumps, No Mole Changes, No Mottling, No Nail Changes, No Pruritus, No Rash, No Skin Lesion Changes, No Other, No Acne Physical Exam General: Alert, Oriented X3, No acute distress HEENT: Atraumatic, EOMI Lungs: Other (Respirations unlabored, symmetric chest rise) Heart: Regular rate Abdomen: Soft, No tenderness Extremities: Other (Large amount of swelling and ecchymosis around her right proximal humerus region) Skin: No breakdown Neuro: Normal speech, Strength at 5/5 X4 ext, Sensation intact Psych/Mental Status: Mental status NL, Mood NL MUSCULOSKELETAL: Other (Examination of her right upper extremity reveals it is in a sling. She has edema and ecchymosis present around her shoulder girdle. Normal motor and sensation are present in her hand) Vitals VITALS Vital Signs Date Time Temp Pulse Resp B/P (MAP) Pulse Ox O2 Delivery O2 Flow Rate FiO2 03/04/20 07:22 20 03/04/20 03:15 98.0 85 139/55 (83) 92 Room Air 98.0 Labs Labs Laboratory Tests Test 03/03/20 09:53 03/03/20 13:05 03/04/20 03:00 03/04/20 06:53 White Blood Count 11.2 x10^3/uL (4.0-11.0) Red Blood Count 3.64 x10^6/uL (3.50-5.40) Hemoglobin 10.6 g/dL (12.0-15.5) Hematocrit 30.8 % (36.0-47.0) Mean Corpuscular Volume 85 fL (79-100) Mean Corpuscular Hemoglobin 29 pg (25-35) Mean Corpuscular Hemoglobin Concent 35 g/dL (31-37) Red Cell Distribution Width 17.0 % (11.5-14.5) Platelet Count 358 x10^3/uL (140-400) Neutrophils (%) (Auto) 89 % (31-73) Lymphocytes (%) (Auto) 7 % (24-48) Monocytes (%) (Auto) 4 % (0-9) Eosinophils (%) (Auto) 0 % (0-3) Basophils (%) (Auto) 1 % (0-3) Neutrophils # (Auto) 10.0 x10^3/uL (1.8-7.7) Lymphocytes # (Auto) 0.8 x10^3/uL (1.0-4.8) Monocytes # (Auto) 0.4 x10^3/uL (0.0-1.1) Eosinophils # (Auto) 0.0 x10^3/uL (0.0-0.7) Basophils # (Auto) 0.1 x10^3/uL (0.0-0.2) Segmented Neutrophils % 83 % (35-66) Band Neutrophils % 2 % (0-9) Lymphocytes % 12 % (24-48) Monocytes % 3 % (0-10) Platelet Estimate Adequate (ADEQUATE) Sodium Level 127 mmol/L (136-145) 130 mmol/L (136-145) Potassium Level 4.2 mmol/L (3.5-5.1) 4.1 mmol/L (3.5-5.1) Chloride Level 93 mmol/L (98-107) 96 mmol/L (98-107) Carbon Dioxide Level 23 mmol/L (21-32) 23 mmol/L (21-32) Anion Gap 11 (6-14) 11 (6-14) Blood Urea Nitrogen 11 mg/dL (7-20) 13 mg/dL (7-20) Creatinine 0.9 mg/dL (0.6-1.0) 0.8 mg/dL (0.6-1.0) Estimated GFR (Cockcroft-Gault) 60.9 69.7 Glucose Level 145 mg/dL (70-99) 94 mg/dL (70-99) Calcium Level 9.2 mg/dL (8.5-10.1) 8.8 mg/dL (8.5-10.1) SARS-CoV-2 Antigen (Rapid) Negative (NEGATIVE) Urine Collection Type Unknown Urine Color Yellow Urine Clarity Clear Urine pH 5.5 (<5.0-8.0) Urine Specific [place] 1.015 (1.000-1.030) Urine Protein Negative mg/dL (NEG-TRACE) Urine Glucose (UA) Negative mg/dL (NEG) Urine Ketones (Stick) Negative mg/dL (NEG) Urine Blood Negative (NEG) Urine Nitrite Negative (NEG) Urine Bilirubin Negative (NEG) Urine Urobilinogen Dipstick 0.2 mg/dL (0.2 mg/dL) Urine Leukocyte Esterase Negative (NEG) Urine RBC 0 /HPF (0-2) Urine WBC Rare /HPF (0-4) Urine Squamous Epithelial Cells Occ /LPF Urine Amorphous Sediment Present /HPF Urine Bacteria 0 /HPF (0-FEW) Urine Hyaline Casts Moderate /HPF Urine Mucus Mod /LPF Prothrombin Time 13.2 SEC (11.7-14.0) Prothromb Time International Ratio 1.0 (0.8-1.1) Laboratory Tests Test 03/03/20 09:53 03/03/20 13:05 03/04/20 03:00 03/04/20 06:53 White Blood Count 11.2 x10^3/uL (4.0-11.0) Red Blood Count 3.64 x10^6/uL (3.50-5.40) Hemoglobin 10.6 g/dL (12.0-15.5) Hematocrit 30.8 % (36.0-47.0) Mean Corpuscular Volume 85 fL (79-100) Mean Corpuscular Hemoglobin 29 pg (25-35) Mean Corpuscular Hemoglobin Concent 35 g/dL (31-37) Red Cell Distribution Width 17.0 % (11.5-14.5) Platelet Count 358 x10^3/uL (140-400) Neutrophils (%) (Auto) 89 % (31-73) Lymphocytes (%) (Auto) 7 % (24-48) Monocytes (%) (Auto) 4 % (0-9) Eosinophils (%) (Auto) 0 % (0-3) Basophils (%) (Auto) 1 % (0-3) Neutrophils # (Auto) 10.0 x10^3/uL (1.8-7.7) Lymphocytes # (Auto) 0.8 x10^3/uL (1.0-4.8) Monocytes # (Auto) 0.4 x10^3/uL (0.0-1.1) Eosinophils # (Auto) 0.0 x10^3/uL (0.0-0.7) Basophils # (Auto) 0.1 x10^3/uL (0.0-0.2) Segmented Neutrophils % 83 % (35-66) Band Neutrophils % 2 % (0-9) Lymphocytes % 12 % (24-48) Monocytes % 3 % (0-10) Platelet Estimate Adequate (ADEQUATE) Sodium Level 127 mmol/L (136-145) 130 mmol/L (136-145) Potassium Level 4.2 mmol/L (3.5-5.1) 4.1 mmol/L (3.5-5.1) Chloride Level 93 mmol/L (98-107) 96 mmol/L (98-107) Carbon Dioxide Level 23 mmol/L (21-32) 23 mmol/L (21-32) Anion Gap 11 (6-14) 11 (6-14) Blood Urea Nitrogen 11 mg/dL (7-20) 13 mg/dL (7-20) Creatinine 0.9 mg/dL (0.6-1.0) 0.8 mg/dL (0.6-1.0) Estimated GFR (Cockcroft-Gault) 60.9 69.7 Glucose Level 145 mg/dL (70-99) 94 mg/dL (70-99) Calcium Level 9.2 mg/dL (8.5-10.1) 8.8 mg/dL (8.5-10.1) SARS-CoV-2 Antigen (Rapid) Negative (NEGATIVE) Urine Collection Type Unknown Urine Color Yellow Urine Clarity Clear Urine pH 5.5 (<5.0-8.0) Urine Specific [place] 1.015 (1.000-1.030) Urine Protein Negative mg/dL (NEG-TRACE) Urine Glucose (UA) Negative mg/dL (NEG) Urine Ketones (Stick) Negative mg/dL (NEG) Urine Blood Negative (NEG) Urine Nitrite Negative (NEG) Urine Bilirubin Negative (NEG) Urine Urobilinogen Dipstick 0.2 mg/dL (0.2 mg/dL) Urine Leukocyte Esterase Negative (NEG) Urine RBC 0 /HPF (0-2) Urine WBC Rare /HPF (0-4) Urine Squamous Epithelial Cells Occ /LPF Urine Amorphous Sediment Present /HPF Urine Bacteria 0 /HPF (0-FEW) Urine Hyaline Casts Moderate /HPF Urine Mucus Mod /LPF Prothrombin Time 13.2 SEC (11.7-14.0) Prothromb Time International Ratio 1.0 (0.8-1.1) Images Images X-rays were reviewed. Assessment/Plan Assessment/Plan Closed right proximal humerus fracture. Acceptable overall alignment. I would recommend nonweightbearing, sling use. I did discuss rehab placement with her, she tells me that she will not do that secondary to concerns over COVID and I had provided some reassurance. She has told me she would rather go to her sister's house. I did again affirm that I think rehab placement would probably be the safest. I did discuss her care with Dr. Winston as well. RONI CARTY II, MD Mar 04, 2020 08:46
[2020-03-04] MEDS: PSYLLIUM HUSK (SUGAR FREE) 1 PKT PACKET PO SCH (09:00)
[2020-03-04] MEDS: POLYETHYLENE GLYCOL 3350 17 GM PACKET. PO SCH (09:00)
[2020-03-04] MEDS ORDERED: oxyCODONE/APAP 5/325 1 TAB TABLET PO PRN (10:00)
[2020-03-04] MEDS: DICYCLOMINE HCL 10 MG CAPSULE PO SCH ×4 (10:44→21:49)
[2020-03-04] MEDS: FERROUS SULFATE 325 MG TABLET. PO SCH (10:44)
[2020-03-04] MEDS: LISINOPRIL 20 MG TABLET PO SCH (10:46)
[2020-03-04] MEDS: OXYBUTYNIN CHLORIDE 5 MG TABLET PO SCH ×3 (10:46→21:49)
[2020-03-04] MEDS: BENZONATATE 100 MG CAPSULE. PO SCH ×3 (10:46→21:49)
[2020-03-04 11:00] VITALS: BP 137/49
--- NOTE | 2020-03-04 12:09 | PDOC ---
[employer] PROGRESS NOTE Date of Service DOS: DATE: 03/04/20 TIME: 12:00 Chief Complaint Chief Complaint RIGHT shoulder and chest pain PSHx of LEFT reverse shoulder arthroplasty for humerus fracture PMHx of CAD PMHx of emphysema PMHx HTN History of Present Illness History of Present Illness 03/04/2020 Pt seen and examined in room. Pt up in beside chair eating breakfast, NAD. RUE showed visible bruising. Rivera catheter in place. Discussed with RN and CM. History of Present Illness Ms Beaulieu is a 75 yo F w/ PMHX CAD, emphysema, HTN who presents to the emergency room complaining of right shoulder and right chest pain after a fall overnight. Patient states that she was getting out of bed when this happened. She states she landed straight on her arm and has been having a lot of arm pain. She states that the chest pain is mild though it does increase with coughing. It does not increase with deep breaths. She denies hitting her head, losing consciousness, neck pain. She has had multiple falls recently. She just had reverse shoulder arthroplasty for humerus fracture on the left side and is still in outpatient rehab for this. CT chest shows emphysematous changes. Right should XR reveals an acute comminuted fracture of the surgical neck of the right humerus with mild anterior inferior displacement of the humeral shaft. Blood pressure on admit was 175/101. WBC 11.2, Hb 10.6, platelets 358, NA 127, K4.2, BUN 11, CR 0.9, glucose 145 Admitted for further care, unable to care for herself with bilateral arm f ractures. Vitals/I&O Vitals/I&O: Vital Signs Date Time Temp Pulse Resp B/P (MAP) Pulse Ox O2 Delivery O2 Flow Rate FiO2 03/04/20 11:00 97.8 87 14 137/49 (78) 90 Room Air 97.8 I & O 03/03/20 03/03/20 03/04/20 15:00 23:00 07:00 Intake Total 200 ml Output Total 0 ml 750 ml Balance 0 ml -550 ml Physical Exam General: Alert, Oriented X3, No acute distress Heart: Regular rate Abdomen: Soft, No tenderness Extremities: Other (Large amount of swelling and ecchymosis around her right proximal humerus region) Skin: No breakdown Labs Labs: Laboratory Tests Test 03/03/20 13:05 03/04/20 03:00 03/04/20 06:53 SARS-CoV-2 Antigen (Rapid) Negative (NEGATIVE) Urine Collection Type Unknown Urine Color Yellow Urine Clarity Clear Urine pH 5.5 (<5.0-8.0) Urine Specific [place] 1.015 (1.000-1.030) Urine Protein Negative mg/dL (NEG-TRACE) Urine Glucose (UA) Negative mg/dL (NEG) Urine Ketones (Stick) Negative mg/dL (NEG) Urine Blood Negative (NEG) Urine Nitrite Negative (NEG) Urine Bilirubin Negative (NEG) Urine Urobilinogen Dipstick 0.2 mg/dL (0.2 mg/dL) Urine Leukocyte Esterase Negative (NEG) Urine RBC 0 /HPF (0-2) Urine WBC Rare /HPF (0-4) Urine Squamous Epithelial Cells Occ /LPF Urine Amorphous Sediment Present /HPF Urine Bacteria 0 /HPF (0-FEW) Urine Hyaline Casts Moderate /HPF Urine Mucus Mod /LPF Prothrombin Time 13.2 SEC (11.7-14.0) Prothromb Time International Ratio 1.0 (0.8-1.1) Sodium Level 130 mmol/L (136-145) Potassium Level 4.1 mmol/L (3.5-5.1) Chloride Level 96 mmol/L (98-107) Carbon Dioxide Level 23 mmol/L (21-32) Anion Gap 11 (6-14) Blood Urea Nitrogen 13 mg/dL (7-20) Creatinine 0.8 mg/dL (0.6-1.0) Estimated GFR (Cockcroft-Gault) 69.7 Glucose Level 94 mg/dL (70-99) Calcium Level 8.8 mg/dL (8.5-10.1) Review of Systems Review of Systems: denies N/V denies dizziness Assessment and Plan Assessmemt and Plan Problems Medical Problems: (1) Closed fracture of right humerus Status: Acute (2) Falls frequently Status: Acute (3) Rib contusion Status: Acute Assessment: 1) RIGHT shoulder and chest pain 2) PSHx of LEFT reverse shoulder arthroplasty for humerus fracture 3) PMHx of CAD 4) PMHx of emphysema 5) PMHx HTN Plan: Continue home meds. Continue PT, OT. DVT prophylaxis. Appreciate subspecialty input. Awaiting SNU transfer. Comment Review of Relevant I have reviewed the following items mae (where applicable) has been applied. Medications: Current Medications Medications (Trade) Dose Ordered Sig/Jess Route PRN Reason Start Time Stop Time Status Last Admin Dose Admin Hydromorphone HCl (Dilaudid) 1 mg 1X ONCE IVP 03/03/20 12:45 03/03/20 12:46 DC 03/03/20 13:02 Ondansetron HCl (Zofran) 4 mg PRN Q4HRS PRN IV NAUSEA/VOMITING, 1ST CHOICE 03/03/20 14:15 03/03/20 23:38 Hydromorphone HCl (Dilaudid) 1 mg PRN Q2HRS PRN IV SEVERE PAIN 7-10 03/03/20 14:15 03/04/20 07:22 Lisinopril (Prinivil) 20 mg DAILY PO 03/04/20 09:00 03/04/20 10:46 Oxybutynin Chloride (Ditropan) 5 mg TID PO 03/03/20 15:00 03/04/20 10:46 Dicyclomine HCl (Bentyl) 20 mg QID PO 03/03/20 17:00 03/04/20 10:44 Ferrous Sulfate (Feosol) 325 mg DAILYWBKFT PO 03/04/20 08:00 03/04/20 10:44 Acetaminophen/ Hydrocodone Bitart (Lortab 5/325) 1 tab PRN Q4HRS PRN PO MODERATE PAIN 03/03/20 14:15 03/03/20 22:19 Polyethylene Glycol (miraLAX PACKET) 17 gm DAILY PO 03/03/20 14:15 03/04/20 09:00 Metoclopramide HCl (Reglan Vial) 5 mg PRN Q6HRS PRN IVP NAUSEA/VOMITING, 2ND CHOICE 03/03/20 17:15 03/04/20 07:28 Benzonatate (Tessalon Perle) 100 mg [id number] PO 03/03/20 21:00 03/04/20 10:46 Sodium Chloride 1,000 ml @ 75 mls/hr 1X ONCE IV 03/03/20 20:45 03/04/20 10:04 DC 03/03/20 20:46 Justifications for Admission Other Justification CARLENE GRANDA III DO Mar 04, 2020 12:09
[2020-03-04] MEDS: oxyCODONE/APAP 5/325 1 TAB TABLET PO PRN ×3 (12:54→22:49)
[2020-03-04 14:48] VITALS: BP 150/52
[2020-03-04 19:58] VITALS: BP 151/52
[2020-03-04 22:47] VITALS: BP 165/62
[2020-03-05 03:01] VITALS: BP 163/69
[2020-03-05] MEDS: oxyCODONE/APAP 5/325 1 TAB TABLET PO PRN ×4 (04:03→17:57)
[2020-03-05 07:00] VITALS: BP 160/62
[2020-03-05] MEDS: HYDROmorphone 2 MG/ML VIAL IV PRN ×2 (07:26→14:55)
[2020-03-05 08:27] LABS: CALCIUM 8.7 mg/dL (8.5-10.1); CREATININE 0.7 mg/dL (0.6-1.0); GFR 81.4
[2020-03-05] MEDS ORDERED: fentaNYL 50MCG/HR PATCH 1 PATCH PATCH.TD72 TD SCH (09:00)
[2020-03-05] MEDS: FERROUS SULFATE 325 MG TABLET. PO SCH (09:00)
[2020-03-05] MEDS: PSYLLIUM HUSK (SUGAR FREE) 1 PKT PACKET PO SCH (09:00)
[2020-03-05] MEDS: POLYETHYLENE GLYCOL 3350 17 GM PACKET. PO SCH (09:00)
[2020-03-05] MEDS: BENZONATATE 100 MG CAPSULE. PO SCH ×3 (09:01→20:35)
[2020-03-05] MEDS: OXYBUTYNIN CHLORIDE 5 MG TABLET PO SCH ×3 (09:01→20:35)
--- NOTE | 2020-03-05 09:14 | PDOC ---
ORTHO PROGRESS NOTES DATE: 03/05/20 TIME: 09:13 Subjective She is still complaining of a lot of pain in her right shoulder. Vitals Vital Signs Date Time Temp Pulse Resp B/P (MAP) Pulse Ox O2 Delivery O2 Flow Rate FiO2 03/05/20 07:26 18 93 Room Air 03/05/20 07:00 98.2 75 160/62 (94) 98.2 Labs Laboratory Tests Test 03/03/20 09:53 03/03/20 13:05 03/04/20 03:00 03/04/20 06:53 White Blood Count 11.2 x10^3/uL (4.0-11.0) Red Blood Count 3.64 x10^6/uL (3.50-5.40) Hemoglobin 10.6 g/dL (12.0-15.5) Hematocrit 30.8 % (36.0-47.0) Mean Corpuscular Volume 85 fL (79-100) Mean Corpuscular Hemoglobin 29 pg (25-35) Mean Corpuscular Hemoglobin Concent 35 g/dL (31-37) Red Cell Distribution Width 17.0 % (11.5-14.5) Platelet Count 358 x10^3/uL (140-400) Neutrophils (%) (Auto) 89 % (31-73) Lymphocytes (%) (Auto) 7 % (24-48) Monocytes (%) (Auto) 4 % (0-9) Eosinophils (%) (Auto) 0 % (0-3) Basophils (%) (Auto) 1 % (0-3) Neutrophils # (Auto) 10.0 x10^3/uL (1.8-7.7) Lymphocytes # (Auto) 0.8 x10^3/uL (1.0-4.8) Monocytes # (Auto) 0.4 x10^3/uL (0.0-1.1) Eosinophils # (Auto) 0.0 x10^3/uL (0.0-0.7) Basophils # (Auto) 0.1 x10^3/uL (0.0-0.2) Segmented Neutrophils % 83 % (35-66) Band Neutrophils % 2 % (0-9) Lymphocytes % 12 % (24-48) Monocytes % 3 % (0-10) Platelet Estimate Adequate (ADEQUATE) Sodium Level 127 mmol/L (136-145) 130 mmol/L (136-145) Potassium Level 4.2 mmol/L (3.5-5.1) 4.1 mmol/L (3.5-5.1) Chloride Level 93 mmol/L (98-107) 96 mmol/L (98-107) Carbon Dioxide Level 23 mmol/L (21-32) 23 mmol/L (21-32) Anion Gap 11 (6-14) 11 (6-14) Blood Urea Nitrogen 11 mg/dL (7-20) 13 mg/dL (7-20) Creatinine 0.9 mg/dL (0.6-1.0) 0.8 mg/dL (0.6-1.0) Estimated GFR (Cockcroft-Gault) 60.9 69.7 Glucose Level 145 mg/dL (70-99) 94 mg/dL (70-99) Calcium Level 9.2 mg/dL (8.5-10.1) 8.8 mg/dL (8.5-10.1) Coronavirus (PCR) Not detected (Not Detected) SARS-CoV-2 Antigen (Rapid) Negative (NEGATIVE) Urine Collection Type Unknown Urine Color Yellow Urine Clarity Clear Urine pH 5.5 (<5.0-8.0) Urine Specific [place] 1.015 (1.000-1.030) Urine Protein Negative mg/dL (NEG-TRACE) Urine Glucose (UA) Negative mg/dL (NEG) Urine Ketones (Stick) Negative mg/dL (NEG) Urine Blood Negative (NEG) Urine Nitrite Negative (NEG) Urine Bilirubin Negative (NEG) Urine Urobilinogen Dipstick 0.2 mg/dL (0.2 mg/dL) Urine Leukocyte Esterase Negative (NEG) Urine RBC 0 /HPF (0-2) Urine WBC Rare /HPF (0-4) Urine Squamous Epithelial Cells Occ /LPF Urine Amorphous Sediment Present /HPF Urine Bacteria 0 /HPF (0-FEW) Urine Hyaline Casts Moderate /HPF Urine Mucus Mod /LPF Prothrombin Time 13.2 SEC (11.7-14.0) Prothromb Time International Ratio 1.0 (0.8-1.1) Test 03/05/20 07:23 Sodium Level 128 mmol/L (136-145) Potassium Level 4.0 mmol/L (3.5-5.1) Chloride Level 96 mmol/L (98-107) Carbon Dioxide Level 23 mmol/L (21-32) Anion Gap 9 (6-14) Blood Urea Nitrogen 10 mg/dL (7-20) Creatinine 0.7 mg/dL (0.6-1.0) Estimated GFR (Cockcroft-Gault) 81.4 Glucose Level 94 mg/dL (70-99) Calcium Level 8.7 mg/dL (8.5-10.1) Laboratory Tests Test 03/05/20 07:23 Sodium Level 128 mmol/L (136-145) Potassium Level 4.0 mmol/L (3.5-5.1) Chloride Level 96 mmol/L (98-107) Carbon Dioxide Level 23 mmol/L (21-32) Anion Gap 9 (6-14) Blood Urea Nitrogen 10 mg/dL (7-20) Creatinine 0.7 mg/dL (0.6-1.0) Estimated GFR (Cockcroft-Gault) 81.4 Glucose Level 94 mg/dL (70-99) Calcium Level 8.7 mg/dL (8.5-10.1) Notes She is awake and alert in bed, eating breakfast. Sling is in place, right upper extremity remains neurovascularly intact Assessment and Plan We will add a fentanyl patch. Her and I did discuss placement again and she is more open to it given the difficulty she is having with her activities of daily living. She should follow-up with Orthopedics in 2 weeks in clinic. RONI CARTY II, MD Mar 05, 2020 09:14
[2020-03-05] MEDS: DICYCLOMINE HCL 10 MG CAPSULE PO SCH ×4 (09:17→20:35)
[2020-03-05] MEDS: LISINOPRIL 20 MG TABLET PO SCH (09:18)
[2020-03-05 11:00] VITALS: BP 144/56
--- NOTE | 2020-03-05 12:04 | PDOC ---
[employer] PROGRESS NOTE Date of Service DOS: DATE: 03/05/20 TIME: 11:57 Chief Complaint Chief Complaint RIGHT shoulder and chest pain PSHx of LEFT reverse shoulder arthroplasty for humerus fracture PMHx of CAD PMHx of emphysema PMHx HTN History of Present Illness History of Present Illness 03/05/2020 Pt seen and examined in room, NAD. Rivera catheter in place. Discussed with . Discussed with RN and CM. 03/04/2020 Pt seen and examined in room. Pt up in beside chair eating breakfast, NAD. RUE showed visible bruising. Rivera catheter in place. Discussed with RN and CM. History of Present Illness Ms Beaulieu is a 75 yo F w/ PMHX CAD, emphysema, HTN who presents to the emergency room complaining of right shoulder and right chest pain after a fall overnight. Patient states that she was getting out of bed when this happened. She states she landed straight on her arm and has been having a lot of arm pain. She states that the chest pain is mild though it does increase with coughing. It does not increase with deep breaths. She denies hitting her head, losing consciousness, neck pain. She has had multiple falls recently. She just had reverse shoulder arthroplasty for humerus fracture on the left side and is still in outpatient rehab for this. CT chest shows emphysematous changes. Right should XR reveals an acute comminuted fracture of the surgical neck of the right humerus with mild anterior inferior displacement of the humeral shaft. Blood pressure on admit was 175/101. WBC 11.2, Hb 10.6, platelets 358, NA 127, K4.2, BUN 11, CR 0.9, glucose 145 Admitted for further care, unable to care for herself with bilateral arm fractu res. Vitals/I&O Vitals/I&O: Vital Signs Date Time Temp Pulse Resp B/P (MAP) Pulse Ox O2 Delivery O2 Flow Rate FiO2 03/05/20 11:15 Room Air 03/05/20 09:18 75 160/62 03/05/20 07:26 18 93 03/05/20 07:00 98.2 98.2 I & O 03/04/20 03/04/20 03/05/20 15:00 23:00 07:00 Intake Total 180 ml 120 ml 230 ml Output Total 400 ml 550 ml Balance 180 ml -280 ml -320 ml Physical Exam General: Alert, Oriented X3, No acute distress Heart: Regular rate Abdomen: Soft, No tenderness Extremities: Other (Large amount of swelling and ecchymosis around her right p roximal humerus region) Skin: No breakdown, Other (RUE ecchymosis and edema) Labs Labs: Laboratory Tests Test 03/05/20 07:23 Sodium Level 128 mmol/L (136-145) Potassium Level 4.0 mmol/L (3.5-5.1) Chloride Level 96 mmol/L (98-107) Carbon Dioxide Level 23 mmol/L (21-32) Anion Gap 9 (6-14) Blood Urea Nitrogen 10 mg/dL (7-20) Creatinine 0.7 mg/dL (0.6-1.0) Estimated GFR (Cockcroft-Gault) 81.4 Glucose Level 94 mg/dL (70-99) Calcium Level 8.7 mg/dL (8.5-10.1) Review of Systems Review of Systems: denies dizziness. denies SOB. Assessment and Plan Assessmemt and Plan Problems Medical Problems: (1) Closed fracture of right humerus Status: Acute (2) Falls frequently Status: Acute (3) Rib contusion Status: Acute Assessment: 1) RIGHT shoulder and chest pain 2) PSHx of LEFT reverse shoulder arthroplasty for humerus fracture 3) PMHx of CAD 4) PMHx of emphysema 5) PMHx HTN Plan: Continue home meds. Continue PT, OT. DVT prophylaxis. Appreciate subspecialty input. D/C tomorrow to [facility]. Comment Review of Relevant I have reviewed the following items mae (where applicable) has been applied. Medications: Current Medications Medications (Trade) Dose Ordered Sig/Jess Route PRN Reason Start Time Stop Time Status Last Admin Dose Admin Oxycodone/ Acetaminophen (Percocet 5/325) 1 tab PRN Q4HRS PRN PO SEVERE PAIN 03/04/20 12:30 03/05/20 09:01 Fentanyl (Duragesic 50mcg/ Hr Patch) 1 patch Q3DAYS TD 03/05/20 09:00 03/05/20 11:15 Justifications for Admission Other Justification CASTLE,NIAL K III DO Mar 05, 2020 12:04
[2020-03-05 15:00] VITALS: BP 132/62
[2020-03-05 19:00] VITALS: BP 148/68
[2020-03-05 23:00] VITALS: BP 159/70
[2020-03-06] MEDS: oxyCODONE/APAP 5/325 1 TAB TABLET PO PRN ×2 (00:40→05:31)
[2020-03-06 02:49] VITALS: BP 141/72
[2020-03-06 07:00] VITALS: BP 152/70
[2020-03-06] MEDS: POLYETHYLENE GLYCOL 3350 17 GM PACKET. PO SCH (09:00)
[2020-03-06] MEDS: PSYLLIUM HUSK (SUGAR FREE) 1 PKT PACKET PO SCH (09:00)
[2020-03-06] MEDS: FERROUS SULFATE 325 MG TABLET. PO SCH (09:50)
[2020-03-06] MEDS: DICYCLOMINE HCL 10 MG CAPSULE PO SCH ×2 (09:50→13:09)
[2020-03-06] MEDS: OXYBUTYNIN CHLORIDE 5 MG TABLET PO SCH ×2 (09:50→13:10)
[2020-03-06] MEDS: LISINOPRIL 20 MG TABLET PO SCH (09:51)
[2020-03-06] MEDS: BENZONATATE 100 MG CAPSULE. PO SCH ×2 (09:51→13:09)
[2020-03-06] MEDS: HYDROmorphone 2 MG/ML VIAL IV PRN (10:07)
[2020-03-06 10:53] VITALS: BP 153/54
--- NOTE | 2020-03-06 11:24 | PDOC ---
[employer] PROGRESS NOTE Date of Service DOS: DATE: 03/06/20 TIME: 11:22 Chief Complaint Chief Complaint RIGHT shoulder and chest pain PSHx of LEFT reverse shoulder arthroplasty for humerus fracture PMHx of CAD PMHx of emphysema PMHx HTN History of Present Illness History of Present Illness 03/06/2020 Pt seen and examined in room. Pt sitting up in bedside chair, NAD. Discussed with . Discussed with RN and CM. 03/05/2020 Pt seen and examined in room, NAD. Rivera catheter in place. Discussed with . Discussed with RN and CM. 03/04/2020 Pt seen and examined in room. Pt up in beside chair eating breakfast, NAD. RUE showed visible bruising. Rivera catheter in place. Discussed with RN and CM. History of Present Illness Ms Beaulieu is a 75 yo F w/ PMHX CAD, emphysema, HTN who presents to the emergency room complaining of right shoulder and right chest pain after a fall overnight. Patient states that she was getting out of bed when this happened. She states she landed straight on her arm and has been having a lot of arm pain. She states that the chest pain is mild though it does increase with coughing. It does not increase with deep breaths. She denies hitting her head, losing consciousness, neck pain. She has had multiple falls recently. She just had reverse shoulder arthroplasty for humerus fracture on the left side and is still in outpatient rehab for this. CT chest shows emphysematous changes. Right should XR reveals an acute comminuted fracture of the surgical neck of the right humerus with mild anterior inferior displacement of the humeral shaft. Blood pressure on admit was 175/101. WBC 11.2, Hb 10.6, platelets 358, NA 127, K4.2, BUN 11, CR 0.9, glucose 145 Admitted for further care, unable to care for herself with bilateral arm fract ures. Vitals/I&O Vitals/I&O: Vital Signs Date Time Temp Pulse Resp B/P (MAP) Pulse Ox O2 Delivery O2 Flow Rate FiO2 03/06/20 10:53 98.3 70 18 153/54 (87) 95 Room Air 98.3 I & O 03/05/20 03/05/20 03/06/20 15:00 23:00 07:00 Intake Total 600 ml 600 ml Output Total 2150 ml 350 ml Balance 600 ml -1550 ml -350 ml Physical Exam General: Alert, Oriented X3, No acute distress Heart: Regular rate Abdomen: Soft, No tenderness Extremities: Other (Large amount of swelling and ecchymosis around her right proximal humerus region) Skin: No breakdown, Other (RUE ecchymosis and edema) Review of Systems Review of Systems: no SOB no n/v Assessment and Plan Assessmemt and Plan Problems Medical Problems: (1) Closed fracture of right humerus Status: Acute (2) Falls frequently Status: Acute (3) Rib contusion Status: Acute Assessment: 1) RIGHT shoulder and chest pain 2) PSHx of LEFT reverse shoulder arthroplasty for humerus fracture 3) PMHx of CAD 4) PMHx of emphysema 5) PMHx HTN Plan: Continue home meds. Continue PT, OT. DVT prophylaxis. Appreciate subspecialty input. D/C later today to [facility]. Comment Review of Relevant I have reviewed the following items mae (where applicable) has been applied. Justifications for Admission Other Justification CARLENE GRANDA III DO Mar 06, 2020 11:24
--- NOTE | 2020-03-06 11:39 | SNU/HH DC ---
DISCHARGE ORDERS DISCHARGE INFORMATION: FINAL DIAGNOSIS Problems Medical Problems: (1) Closed fracture of right humerus Status: Acute (2) Falls frequently Status: Acute (3) Rib contusion Status: Acute CONDITION ON DISCHARGE: Stable CODE STATUS: Code Status: Full CUSTODIAL: SNF STAY <30 DAYS: Yes HOSPICE: HOSPICE: No HOSPICE EVAL & TREAT: No LTAC: ADMIT TO LTAC: No POST DISCHARGE ORDERS: ACTIVITY ORDERS: Activity as tolerated WEIGHT BEARING STATUS: As tolerated BATHING ORDERS: Shower-keep dressing dry DIET AFTER DISCHARGE: Regular WOUND/INCISION CARE: Do not change dressing TREATMENT/EQUIPMENT ORDERS: ADAPTIVE EQUIPMENT NEEDED: Brace/splint Physical Therapy For: Evalulation/Treatment Occupational Therapy For: Evaluation/Treatment DISCHARGE MEDICATIONS: Home Meds Reported Medications Ondansetron (ONDANSETRON ODT) 4 Mg Tab.rapdis, 1 TAB PO PRN Q4HRS PRN for NAUSEA, #16 TAB 03/03/20 Acetaminophen (TYLENOL) 325 Mg Tablet, 500 MG PO QID for ANALGESIA, TAB 11/25/19 Ferrous Fumarate (FERROUS FUMARATE) 89 Mg Tablet, 89 MG PO DAILY for ANEMIC, TAB 11/25/19 [Ostramatrix] No Conflict Check, 1 CAP PO 6XDAY for KNEE AND B[employer] HEALTH 06/24/19 Zolpidem Tartrate (ZOLPIDEM TARTRATE) 10 Mg Tablet, 10 MG PO PRN QHS PRN for INSOMNIA, TAB 0 Refills 02/06/18 Dicyclomine Hcl (DICYCLOMINE HCL) 20 Mg Tablet, 20 MG PO QID, TAB 02/06/18 Citalopram Hydrobromide (CITALOPRAM HBR) 20 Mg Tablet, 1 TAB PO BID, #30 TAB 5 Refills 02/06/18 Oxybutynin Chloride (OXYBUTYNIN CHLORIDE) 5 Mg Tablet, 1 TAB PO TID for HTN, #60 TAB 11 Refills 02/06/18 Lisinopril (LISINOPRIL) 5 Mg Tablet, 20 MG PO DAILY for HTN 02/06/18 CARLENE GRANDA III DO Mar 06, 2020 11:39
[2020-03-06] MEDS: HYDROcodone/APAP 5/325MG 1 TAB TABLET PO PRN (13:10)
--- NOTE | 2020-03-06 13:22 | NUR ---
Report called to [facility] and spoke with Halle CANTU.
--- NOTE | 2020-03-06 13:35 | NUR ---
Discharged to [facility] by w/c.
== END 2020-03-06 13:35 | DRG 563 ==
LOC: ER 09:36 → 4 NORTH 11:35
PROVIDERS: ADMIT Internal Medicine; ATTEND Internal Medicine
DX: S42.211A Unspecified displaced fracture of surgical neck of right humerus, initial encounter for closed fracture (principal); E87.1 Hypo-osmolality and hyponatremia; E86.1 Hypovolemia; F17.210 Nicotine dependence, cigarettes, uncomplicated; I10 Essential (primary) hypertension; I25.10 Atherosclerotic heart disease of native coronary artery without angina pectoris; J43.9 Emphysema, unspecified; R29.6 Repeated falls; S20.219A Contusion of unspecified front wall of thorax, initial encounter; Z82.49 Family history of ischemic heart disease and other diseases of the circulatory system; Z96.612 Presence of left artificial shoulder joint; Z87.11 Personal history of peptic ulcer disease; K21.9 Gastro-esophageal reflux disease without esophagitis; W18.39XA Other fall on same level, initial encounter; Y93.89 Activity, other specified; Y92.89 Other specified places as the place of occurrence of the external cause; Y99.8 Other external cause status; Z20.828 Contact with and (suspected) exposure to other viral communicable diseases; Z88.8 Allergy status to other drugs, medicaments and biological substances
CPT/HCPCS: 36415; 71250; 73030; 80048; 81001; 85007; 85025; 85610; 87426; 93005; 96374; 96375; 96376; 99285; J1170; J2270; J2405; J2765; J7030; 97110-GP; 97116-GP; 97530-GP; 97535-GO; G0378; U0003-CS

== ENCOUNTER → 2020-04-03 | Outpatient (CLI) | payer MEDICARE ==
[2020-03-04 22:47] VITALS: BP 165/62
[~2020-04-03] MED LIST changes: +ONDA4TAB12 PO
--- NOTE | 2020-04-03 15:21 | RAD ---
One view right shoulder HISTORY: Closed fracture right humerus without healing Single AP view right shoulder COMPARISON: December 17, 2019 There is a mildly comminuted fracture of the right humeral head and neck with medial displacement and valgus angulation. The remaining visualized osseous structures appear grossly intact. There has been little interval healing. IMPRESSION: Nonhealing right humeral head neck fracture. Electronically signed by: Zach Millan III, MD (04/03/2020 3:19 PM) [facility]
== END ==
LOC: RAD 13:39
PROVIDERS: ATTEND Physician Assistant
DX: S42.291D Other displaced fracture of upper end of right humerus, subsequent encounter for fracture with routine healing (principal); X58.XXXD Exposure to other specified factors, subsequent encounter
CPT/HCPCS: 73020

== ENCOUNTER 2020-07-03 10:09 | Emergency (ER) | payer MEDICARE ==
[~2020-07-03] VITALS: Ht 165.1 cm; Wt 54.5 kg
[~2020-07-03 10:09] MED LIST changes: -LISI-338 PO; +LISI-517 PO
--- NOTE | 2020-07-03 10:59 | PHYS DOC ---
Past Medical History Past Medical History: CAD, Depression, Hypertension, Other Additional Past Medical Histor: incontinence, pneumothorax, skin CA, stomach ulcer,osteoperosis (MADELEINE REAL DO) Past Surgical History: Other Additional Past Surgical Histo: shoulder, right rotator cuff, "lung sx for pneumothorax" (MADELEINE REAL DO) Smoking Status: Current Every Day Smoker Additional Information: 5 cigarettes daily Alcohol Use: None Social History Narrative: oxycodone (MADELEINE REAL DO) General Adult EDM: Chief Complaint: MECHANICAL FALL HPI: HPI: 35-year-old past medical history of CAD, hypertension and depression, presents the ED with complaints of (MADELEINE REAL DO) Review of Systems: Review of Systems: Constitutional: Denies fever or chills. [] Eyes: Denies change in visual acuity. [] HENT: Denies nasal congestion or sore throat. [] Respiratory: Denies cough or shortness of breath. [] Cardiovascular: Denies chest pain or edema. [] GI: Denies abdominal pain, nausea, vomiting, bloody stools or diarrhea. [] : Denies dysuria. [] Musculoskeletal: Denies back pain or joint pain. [] Integument: Denies rash. [] Neurologic: Denies headache, focal weakness or sensory changes. [] Endocrine: Denies polyuria or polydipsia. [] Lymphatic: Denies swollen glands. [] Psychiatric: Denies depression or anxiety. [] (MADELEINE REAL DO) Heart Score: Risk Factors: Risk Factors: DM, Current or recent (<one month) smoker, HTN, HLP, family history of CAD, obesity. Risk Scores: Score 0 - 3: 2.5% MACE over next 6 weeks - Discharge Home Score 4 - 6: 20.3% MACE over next 6 weeks - Admit for Clinical Observation Score 7 - 10: 72.7% MACE over next 6 weeks - Early Invasive Strategies (MADELEINE REAL DO) Allergies: Allergies: Allergies Coded Allergies Type Severity Reaction Last Updated Verified NSAIDS (Non-Steroidal Anti-Inflamma Adverse Reaction Severe 07/03/20 Yes aspirin Adverse Reaction Severe 07/03/20 Yes (MADELEINE REAL DO) Physical Exam: PE: Constitutional: Well developed, well nourished, no acute distress, non-toxic appearance. HENT: Normocephalic, atraumatic, Eyes: EOMI, conjunctiva normal, no discharge. Neck: Normal range of motion, supple, Cardiovascular: S1/2 present, regular rhythm Lungs & Thorax: Speaking in full sentences, bilateral equal chest rise, no tachypnea or increased work of breathing Abdomen: soft, no tenderness, Skin: Warm, dry, no erythema, no rash. [] Back: No tenderness, no CVA tenderness. [] Extremities: No tenderness, no cyanosis, no edema Neurologic: Alert and oriented X 3, normal motor function, normal sensory function, no focal deficits noted. [] Psychologic: Affect normal, judgement normal, mood normal. [] (MADELEINE REAL DO) Current Patient Data: Vital Signs: Vital Signs Date Time Temp Pulse Resp B/P (MAP) Pulse Ox O2 Delivery O2 Flow Rate FiO2 07/03/20 10:57 80 20 94 07/03/20 10:17 98.4 207/91 (129) Room Air 98.4 (MADELEINE REAL DO) EKG: EKG: [] (MADELEINE REAL DO) Radiology/Procedures: Radiology/Procedures: IMAGING REPORT Signed PATIENT: CHRIS PATEL PACCOUNT: [id number] : 1945 LOCATION: ER AGE: 75 SEX: F EXAM STATUS: REG ER ORD. PHYSICIAN: MADELEINE REAL DO REASON: rib pain PROCEDURE: CT CHEST WO CONTRAST EXAM: CT CHEST WITHOUT CONTRAST HISTORY: Rib pain COMPARISON: CT chest 03/03/2020 TECHNIQUE: Helical CT of the chest performed without contrast. Coronal and sagittal reformats were obtained. One or more of the following individualized dose reduction techniques were utilized for this examination: 1. Automated exposure control 2. Adjustment of the mA and/or kV according to patient size 3. Use of iterative reconstruction technique. FINDINGS: Thyroid gland and thoracic inlet: Normal. Heart and great vessels: The heart is normal in size. There is a trace pericardial effusion or pericardial thickening. There are coronary artery calcifications. The thoracic aorta is normal in caliber with moderate calcified atherosclerosis. Mediastinum and carmela: No lymphadenopathy. Lungs and pleura: Moderate centrilobular emphysema. There is linear atelectasis in the right middle lobe and right lower lobe. Mild confluent opacities in the posterior medial left lower lobe, likely atelectasis and unchanged. No pleural effusion. Chest wall and axillae: No axillary lymphadenopathy. Breast tissue symmetric. Upper abdomen: There is moderate calcifications in the abdominal aorta. Bones: There is a subacute right proximal humerus fracture, incompletely visualized. No rib fracture visualized or other acute fracture. A left shoulder prosthesis is noted. IMPRESSION: 1. Subacute right proximal humerus fracture. 2. No rib fracture identified. 3. There is mild subcutaneous fat stranding in the right lateral chest wall, possibly soft tissue contusion. 4. Moderate centrilobular emphysema. Scattered atelectasis. 5. Moderate calcified aortic atherosclerosis. Electronically signed by: Aster Reno MD (07/03/2020 11:46 AM) [id number] DICTATED and SIGNED BY: ASTER RNEO MD DATE: 07/03/20 [id number] [facility] Course & Med Decision Making: Course & Med Decision Making Pertinent Labs and Imaging studies reviewed. (See chart for details) Concern for accidental fall on ice a few days ago with posterior rib pain, CT of the chest negative for any rib fractures, likely rib contusions. Analysis also consistent with UTI that was treated with fosfomycin in the ED. Will prescribe Lido patches for pain and was educated on incentive spirometer use, 10 times every hour. Will discharge home with strict ED return precautions were given for fever, increased work of breathing, chest pain or difficulties breathing. Encouraged urgent outpatient follow-up with PMD to repeat urinalysis in 1 week. Life-threatening processes were considered but are low suspicion at this time, given history, physical exam and ED workup. Pt was educated on all prescription medications and adverse effects. All patient's questions were answered and pt was stable at time of discharge. Life/limb-threatening differential includes but is not limited to, intracranial hemorrhage, diffuse axonal injury, spinal cord syndrome, unstable cervical fracture or SCIWORA, fractures or joint dislocations, neurovascular injuries, organ injury or laceration, pneumothorax, pneumoperitoneum, pericardial tamponade, unstable pelvic fracture, compartment syndrome, flail chest or respiratory distress, burn injury or asphyxiation I spoken with the patient and her caregivers. I explained the patient's condition, diagnoses and treatment plan based on the information available to me at this time. I have answered the patient and her caregiver's questions and addressed any concerns. The patient and her caregivers have a good understanding of patient's diagnosis, condition and treatment plan as can be expected at this point. Vital signs have been stable. Patient's condition is stable and appropriate for discharge from the emergency department. Patient will pursue further outpatient evaluation with primary care physician or other designated or consulting physician as outlined in the discharge instructions. The patient and/or caregivers are agreeable to this plan of care and follow-up instructions have been explained in detail. The patient and/or caregivers have received these instructions in written form and have expressed an understanding of the discharge instructions. The patient and/or caregivers are aware that any significant change of condition or worsening of symptoms should prompt immediate return to this or the closest emergency department or call to 911. (MADELEINE REAL DO) Course & Med Decision Making Positive urine culture, spoke to patient, she states she still has UTI symptoms. Prescription for cephalexin sent to her pharmacy. (CASIMIRO PEÑA APRN) Dragon Disclaimer: Dragon Disclaimer: This electronic medical record was generated, in whole or in part, using a voice recognition dictation system. (MADELEINE REAL DO) Departure Departure Impression: Primary Impression: Contusion of ribs Additional Impressions: Contusion of rib on right side Urinary tract infection Disposition: 01 DC HOME SELF CARE/HOMELESS Condition: STABLE Referrals: CHER SCHMIDT (PCP) Repeat urinalysis in 7 days Patient Instructions: Incentive Spirometer, Rib Contusion Additional Instructions: EMERGENCY DEPARTMENT GENERAL DISCHARGE INSTRUCTIONS Thank you for coming to [facility] Emergency Department (ED) today and trusting us with you care. We trust that you had a positive experience in our Emergency Department. If you wish to speak to the department management, you may call the Director at [phone]. YOUR FOLLOW UP INSTRUCTIONS ARE FOLLOWS: 1. Do you have a private Doctor? If you do not have a private doctor, please ask for a resource list of physicians or clinics that may be able to assist you with follow up care. 2. The Emergency Physicain has interpreted your x-rays. The X-Ray specialist will also review them. If there is a change in the findings, you will be notified in 48 hours when at all possible. 3. A lab test or culture has been done, your results will be reviewed and you will be notified if you need a change in treatment. ADDITIONAL INSTRUCTIONS AND INFORMATION: 1. Your care today has been supervised by a physician who is specially trained in emergency care. Many problems require more than one evaluation for a complete diagnosis and treatment. We recommend that you schedule your follow up appointment as recommended to ensure complete treatment of you illness or injury. If you are unable to obtain follow up care and continue to have a problem, or if your condition worsens, we recommend that you return to the ED. 2. We are not able to safely determine your condition over the phone nor are we able to give sound medical advice over the phone. For these safety reasons, if you call for medical advice we will ask you to come to the ED for further evaluation. 3. If you have any questions regarding these discharge instructions please call the ED at [phone]. SAFETY INFORMATION: In the interest of safety, wellness, and injury prevention; we encourage you to wear your sealbelt, if you smoke; quite smoking, and we encourage family to use a protective helmet for bicycling and other sporting events that present an increased risk for head injury. IF YOUR SYMPTOMS WORSEN OR NEW SYMPTOMS DEVELOP, OR YOU HAVE CONCERNS ABOUT YOUR CONDITION; OR IF YOUR CONDITION WORSENS WHILE YOU ARE WAITING FOR YOUR FOLLOW UP APPOINTMENT; EITHER CONTACT YOUR PRIMARY CARE DOCTOR, THE PHYSICIAN WHOSE NAME AND NUMBER YOU WERE GIVEN, OR RETURN TO THE ED IMMEDIATELY. Scripts Cephalexin (CEPHALEXIN) 500 Mg Tablet 1 TAB PO BID, #14 TAB Prov: CASIMIRO PEÑA APRN 07/06/20 Lidocaine (Lido Onur) 1 Each Adh..patch 1 EACH TP DAILY for 5 Days, #5 PATCH Apply 1 patch for 12 hours, remove for another 12 hours. May repeat, 1 patch per day as instructed above. Prov: MADELEINE REAL DO 07/03/20 MADELEINE REAL DO Jul 03, 2020 10:59 CASIMIRO PEÑA APRN Jul 06, 2020 12:31
[2020-07-03 11:27] LABS: BILIRUBIN,URINE NEGATIVE (NEG); CLARITY,URINE CLOUDY; COLOR,URINE YELLOW; NITRITE,URINE POSITIVE (NEG); PROTEIN,URINE NEGATIVE (NEG-TRACE); UROBILINOGEN,URINE 0.2 mg/dL (0.2 mg/dL)
[2020-07-03 11:39] LABS: BACTERIA,URINE FEW /HPF (0-FEW); WBC,URINE TNTC /HPF (0-4)
--- NOTE | 2020-07-03 11:49 | RAD ---
EXAM: CT CHEST WITHOUT CONTRAST HISTORY: Rib pain COMPARISON: CT chest 03/03/2020 TECHNIQUE: Helical CT of the chest performed without contrast. Coronal and sagittal reformats were o btained. One or more of the following individualized dose reduction techniques were utilized for this examinat ion: 1. Automated exposure control 2. Adjustment of the mA and/or kV according to patient size 3. Use of iterative reconstruction technique. FINDINGS: Thyroid gland and thoracic inlet: Normal. Heart and great vessels: The heart is normal in size. There is a trace pericardial effusion or perica rdial thickening. There are coronary artery calcifications. The thoracic aorta is normal in caliber w ith moderate calcified atherosclerosis. Mediastinum and carmela: No lymphadenopathy. Lungs and pleura: Moderate centrilobular emphysema. There is linear atelectasis in the right middle l obe and right lower lobe. Mild confluent opacities in the posterior medial left lower lobe, likely at electasis and unchanged. No pleural effusion. Chest wall and axillae: No axillary lymphadenopathy. Breast tissue symmetric. Upper abdomen: There is moderate calcifications in the abdominal aorta. Bones: There is a subacute right proximal humerus fracture, incompletely visualized. No rib fracture visualized or other acute fracture. A left shoulder prosthesis is noted. IMPRESSION: 1. Subacute right proximal humerus fracture. 2. No rib fracture identified. 3. There is mild subcutaneous fat stranding in the right lateral chest wall, possibly soft tissue co ntusion. 4. Moderate centrilobular emphysema. Scattered atelectasis. 5. Moderate calcified aortic atherosclerosis. Electronically signed by: Aster Reno MD (07/03/2020 11:46 AM) [id number]
[2020-07-03] MEDS ORDERED: LIDO1ADH78 TP (12:58)
[2020-07-03] MEDS ORDERED: LIDOCAINE (700MG/PATCH) PATCH. TD SCH (13:00)
[2020-07-03] MEDS ORDERED: FOSFOMYCIN TROMETHAMINE 3 GM PACKET PO ONE (13:00)
[2020-07-03 13:22] VITALS: BP 167/79
[2020-07-06] MEDS ORDERED: CEPH500T PO (12:29)
== END 2020-07-03 13:38 | disposition home or self-care (01) ==
LOC: ER 10:09
DX: S20.211A Contusion of right front wall of thorax, initial encounter (principal); I10 Essential (primary) hypertension; I25.10 Atherosclerotic heart disease of native coronary artery without angina pectoris; F17.210 Nicotine dependence, cigarettes, uncomplicated; Z88.6 Allergy status to analgesic agent; W00.0XXA Fall on same level due to ice and snow, initial encounter; Y93.89 Activity, other specified; Y92.89 Other specified places as the place of occurrence of the external cause; Y99.8 Other external cause status
CPT/HCPCS: 71250; 81001; 87077; 87086; 87186; 99285-25